=== PATIENT | male | born 1945 | race Caucasian/White ===

== ENCOUNTER 2017-02-20 14:47 | Emergency (ER) | payer MEDICARE, BC ==
[2017-02-20 15:18] VITALS: BP 137/73
== END 2017-02-20 15:45 | disposition left against medical advice (07) ==
LOC: UCEAST 14:47
DX: R06.00 Dyspnea, unspecified (principal); Z53.21 Procedure and treatment not carried out due to patient leaving prior to being seen by health care provider

== ENCOUNTER 2017-06-13 06:07 | Observation (INO) | payer MEDICARE, BC ==
[~2017-06-13 06:07] MED LIST: Buffered Lidocaine 0.9% SYRIN* 5 ML/SYR SYRINGE INTRADERM ONE; Famotidine IV* 10 MG/ML 2 ML (20 mg) IV ONE; Levalbuterol 0.63MG/3ML NEB* UNIT OF USE INH ONE; Metoclopramide TAB* 10 MG PO ONE
[2017-06-13] MEDS ORDERED: Famotidine IV* 10 MG/ML 2 ML (20 mg) ONE (06:38)
[2017-06-13] MEDS ORDERED: Metoclopramide TAB* 10 MG ONE (06:38)
[2017-06-13] MEDS ORDERED: ceFAZolin 2 GM PREMIX (*) 2 GM/50 ML BAG IVPB ONE (06:39)
[2017-06-13] MEDS ORDERED: Levalbuterol 1.25MG/0.5ML NEB ONE (06:39)
[2017-06-13] MEDS ORDERED: Buffered Lidocaine 0.9% SYRIN* 5 ML/SYR SYRINGE ONE (06:39)
[2017-06-13] MEDS ORDERED: Bacitracin IV* 50,000 UNITS INJ ONE (07:27)
[2017-06-13] MEDS ORDERED: Thrombin 5,000 UNITS* 1 APPLIC KIT - topical use - TOPICAL ONE (07:27)
[2017-06-13] MEDS ORDERED: Lidocaine 1% MPF wEPI 200,000* 30 ML SDV ONE (07:27)
[2017-06-13] MEDS ORDERED: Lidocaine 2% PF * 5 ML VIAL ONE (07:31)
[2017-06-13] MEDS ORDERED: Phenylephrine INJ* 10 MG/ML 1 ML VIAL (10 MG) ONE (07:31)
[2017-06-13] MEDS ORDERED: Dexamethasone IV* 4 MG/ML 1 ML (4 MG) ONE (07:31)
[2017-06-13] MEDS ORDERED: Cisatracurium* 2 MG/ML MDV 5 ML ONE (07:31)
[2017-06-13] MEDS ORDERED: fentaNYL* 50 MCG/ML 2 ML VIAL (100 MCG VIAL) ONE ×2 (07:31→10:08)
[2017-06-13] MEDS ORDERED: Propofol* 10 MG/ML 20 ML BTL IV PUSH ONE (07:31)
[2017-06-13] MEDS ORDERED: Ondansetron INJ* 2 MG/ML VIAL ONE (07:31)
[2017-06-13] MEDS ORDERED: KETAMINE HCL* 50 MG/ML 10 ML VIAL ONE (07:32)
[2017-06-13] MEDS ORDERED: Midazolam* 1 MG/ML 5 ML VIAL (5 MG) ONE (07:32)
[2017-06-13] MEDS ORDERED: Artificial Tear OPHTH.OINT* 3.5 GM ONE (07:36)
[2017-06-13] MEDS ORDERED: Ondansetron INJ* 2 MG/ML VIAL IV PRN ×2 (09:29→10:03)
[2017-06-13] MEDS ORDERED: Acetaminophen TAB* 325 MG PO PRN (09:29)
[2017-06-13] MEDS ORDERED: Albuterol HFA INHALER* 8 gm MDI INH PRN (09:34)
[2017-06-13] MEDS ORDERED: Levalbuterol 0.63MG/3ML NEB* UNIT OF USE INH PRN (10:03)
[2017-06-13] MEDS: fentaNYL* 50 MCG/ML 2 ML VIAL (100 MCG VIAL) IV PRN ×4 (10:09→10:56)
[2017-06-13] MEDS ORDERED: HYDROcodone/ACETAMIN 5-325 MG* 1 TAB ONE (10:57)
[2017-06-13] MEDS: HYDROcodone/ACETAMIN 5-325 MG* 1 TAB PO PRN ×4 (10:58→21:24)
[2017-06-13] MEDS ORDERED: Enalaprilat IV* 1.25 MG/ML 2 ML VIAL (2.5 MG) ONE (11:09)
[2017-06-13] MEDS: Nabumetone TAB* 500 MG PO SCH (21:25)
[2017-06-13] MEDS: Mometasone/Formoter 200/5 MDI INH SCH (21:40)
[2017-06-14] MEDS: HYDROcodone/ACETAMIN 5-325 MG* 1 TAB PO PRN ×2 (03:35→09:11)
--- NOTE | 2017-06-14 07:52 | PN ---
Progress Note - Progress Note Date of Service: 06/14/17 SOAP: Subjective: []POD # 1 Doing well Feels arms are moving better Minimal drainage from drain Objective: []CT shows satis construct Neuro intact Minimal drain output Assessment: []Satis post op course Plan: []D/C today D/C Instructions given
--- NOTE | 2017-06-14 07:59 | RAD ---
INDICATION: Status post cervical spine surgery COMPARISON: Presurgical MRI dated December 27, 2016 TECHNIQUE: Axial source images were acquired with coronal and sagittal reformatting. FINDINGS: Postsurgical changes include laminectomies at C3, C4 and C5. On the left there are 2 pedicle screws and 3 on the right with posterior fixation rods. There is a surgical drain immediately adjacent to the posterior elements and skin santosh overlying the posterior neck. There is air immediately posterior to the elements of the posterior spine, more so on the left than the right with expected infiltration of the subcutaneous tissues and muscles. There is no definite hyperdense material within the thecal sac. Degenerative changes of the cervical spine similar to the presurgical MRI include straightening of the normal cervical lordosis and loss of intervertebral disc height from C3 through C6. The most advanced degenerative changes are at C4/C5 where there is obliteration of the intervertebral disc space, sclerotic change of the articulating services and marginal osteophyte formation. On the coronal view there is uncovertebral hypertrophy at the mid-level cervical spine, most severe at the C4/C5 level. There is no prevertebral soft tissue swelling. The visualized lung apices exhibit centrilobular emphysematous changes. IMPRESSION: DEGENERATIVE AND POSTSURGICAL CHANGES DESCRIBED ABOVE.
[2017-06-14] MEDS: Mometasone/Formoter 200/5 MDI INH SCH (08:33)
[2017-06-14 08:34] VITALS: BP 129/59
[2017-06-14] MEDS ORDERED: Spiriva Inhaler DEVICE* 1 EACH DEVICE ONE (09:00)
[2017-06-14] MEDS ORDERED: Lisinopril TAB* 10 MG PO SCH (09:00)
[2017-06-14] MEDS ORDERED: Aspirin EC Low Dose* 81 MG TAB.EC PO SCH (09:00)
[2017-06-14] MEDS ORDERED: Tiotropium CAP.INH* CAP.INH/18 MCG (USE ORDER SET !) INH SCH (09:00)
[2017-06-14] MEDS ORDERED: Atorvastatin* 10 MG TAB PO SCH (09:00)
[2017-06-14] MEDS: Nabumetone TAB* 500 MG PO SCH (09:11)
--- NOTE | 2017-06-19 09:39 | OP ---
AMENDED REPORT TO CORRECT ACCOUNT NUMBER DATE OF OPERATION: 06/13/17 - ROOM #401 DATE OF : 45. PRIMARY SURGEON: Eusebio Bryant MD. HOISTING LABORER: "Vivek Warren MD." ANESTHESIOLOGIST: Kevin Marley MD ANESTHESIA: General. PRE-OP DIAGNOSIS: Cervical spondylosis with myelopathy. POST-OP DIAGNOSIS: Cervical spondylosis with myelopathy. OPERATIVE PROCEDURE: Decompressive cervical laminectomy, C3 to C6 with cervical fusion C3 to C6 with posterior instrumentation C3 to C6, harvesting of autograft for fusion. DESCRIPTION OF PROCEDURE: After satisfactory general anesthesia was obtained, the patient was placed on the operating room table in the prone position with the neck maintained in neutral utilizing the Singleton headrest. The posterior cervical region was then clipped, prepped and draped in a sterile manner for posterior cervical laminectomy and skin incision outlined from C2 to C6. This incision was then infiltrated with 1% Xylocaine with epinephrine, after which it was turned down sharply to the level of the cervical fascia. The fascia was divided along the spinous processes from C2 to C6 and the paraspinal musculature stripped away from these posterior elements using the periosteal elevator and monopolar cautery. The C2 spinous process was dissected free and served as a landmark for location of the proper levels. The initial step in the procedure was placement of lateral James screws which were placed into the C3 , C4, and C5 lateral masses on the right side and on the left side were placed into the C4 and C5 lateral mass. The lateral mass at C3 on the left side was noted to be somewhat deformed and arthritic. After screw placement decompression was carried out by harvesting the spinous processes of C3, C4 and C5 for use as autograft later in the procedure. The posterior elements of C3, C4, and C5 were removed with a combination of the Midas Wong drill and Kerrison rongeurs. Additional bone was saved for autograft when using the Kerrison. The decompression was carried out until all the posterior elements of the C3, C4 , and C5 had been removed as well as a small portion of superior aspect of C6. After assuring a satisfactory decompression, the bony edges about the screws were decorticated and a bone log was placed that had been made from autograft and allograft mixed with bony matrix. This was laid in the lateral gutter bilaterally. A drain was placed in the epidural space and tunneled out toward the left side. The fascia was then reapproximated with 0 Vicryl sutures, subcutaneous tissues closed with 3-0 Vicryl suture and the skin closed with skin clips. The estimated blood loss was less then 50 mL and final sponge, pad , and needle counts were correct. The patient was taken to the recovery room extubated and in stable condition. [id number]/[facility] [place] #: [id number] MTDD
--- NOTE | 2017-06-23 01:28 | DS ---
DISCHARGE SUMMARY: DATE OF ADMISSION: 06/13/17 DATE OF DISCHARGE: 06/14/17 PROVIDER: Dr. Bryant * (DICTATED BY DYLAN GILMORE) DISCHARGE DIAGNOSES: 1. Cervical spondylosis with myelopathy, C3-4, C4-5. 2. Chronic obstructive pulmonary disease. SPECIAL PROCEDURES: Posterior cervical decompression and fusion, C3-4 and C4-5. HOSPITAL COURSE: This 71-year-old male was seen in office with signs and symptoms of cervical myelopathy consistent with MRI findings of cervical spondylosis and cord compression at C3-4 and C4-5. He failed to improve with several months of conservative treatments and surgical intervention was discussed with the patient. He decided to proceed with elective surgery and was admitted at this time. On the day of admission, he was taken to surgery, where under general anesthesia, a posterior cervical decompression and fusion, C3-4 and C4-5, operation was carried out. Postoperatively, he was feeling well. Upper extremity symptoms were improving. He was eating and drinking without difficulty. He was ambulating independently. On the first postoperative day, the Mjeia wound drain was discontinued and the patient was discharged home to the care of the family. DISCHARGE MEDICATIONS: [place]iful 5/325 mg 1-2 tabs by mouth every 4 hours as needed for pain. FOLLOWUP: He will be seen in the office in approximately 10 to 14 days for followup and staple removal. DISCHARGE INSTRUCTIONS: Including wound care and activity level were discussed with the patient and information was provided. DYLAN GILMORE [id number]/[facility] #: [id number] MTDAnne
== END 2017-06-14 10:50 | disposition home or self-care (01) ==
LOC: OR 06:07 → SSU 09:29
PROVIDERS: ADMIT Neurological Surgery; ATTEND Neurological Surgery
DX: M47.12 Other spondylosis with myelopathy, cervical region (principal); G95.9 Disease of spinal cord, unspecified; Z87.891 Personal history of nicotine dependence; M19.90 Unspecified osteoarthritis, unspecified site
CPT/HCPCS: 72125; 94640; 94760; 96374; 96376; A9270-GY; C1713; C1776; G0378; J0690; J1100; J2001; J2250; J2405; J2704; J3010

== ENCOUNTER 2017-07-26 09:53 | Inpatient (IN) | payer MEDICARE, BC ==
[2017-07-26] MEDS ORDERED: Albuterol/Ipratropium NEB.SOL* Albuterol 2.5 MG/Ipratropium 0.5 MG 3 ML INH ONE (11:23)
[2017-07-26 11:35] LABS: Hematocrit 42 % (42-52); Hemoglobin 14.4 g/dl (14.0-18.0); Mean Corpuscular HGB Conc 34 g/dl (31-36); Mean Corpuscular Hemoglobin 32 pg (27-31); Mean Corpuscular Volume 93 fL (80-94); Mean Platelet Volume 8 um3 (7.4-10.4); Red Blood Count 4.54 10^6/ul (4.0-5.4); Red Cell Distribution Width 13 % (10.5-15); White Blood Count 14.1 10^3/ul (3.5-10.8)
[2017-07-26 11:36] LABS: Comments Flag Yes
[2017-07-26 11:41] LABS: BUN/Creatinine Ratio 15.1 (8-20); Calcium 9.9 mg/dL (8.6-10.3); EGFR African American 88.3 (>60); EGFR Non-African American 68.7 (>60); Globulin 3.7 g/dL (2-4); Potassium 3.9 mmol/L (3.5-5.0); Total Bilirubin 0.5 mg/dL (0.2-1.0); Total Protein 7.7 g/dL (6.4-8.9)
[2017-07-26] MEDS ORDERED: Acetaminophen TAB* 325 MG PO ONE (11:53)
[2017-07-26 12:00] LABS: Urine Bacteria Absent (Absent); Urine Bilirubin Negative (Negative); Urine Glucose Negative (Negative); Urine Nitrite Negative (Negative)
[2017-07-26] MEDS ORDERED: methylPREDNISolone 125 MG* 2 ML VIAL IV ONE (12:01)
[2017-07-26] MEDS ORDERED: Oseltamivir CAP* 75 MG PO ONE (12:01)
--- NOTE | 2017-07-26 12:09 | RAD ---
Indication: Chronic obstructive pulmonary disease. 2 views of the chest including dual energy PA views demonstrate no mediastinal shift. Heart is of normal size and configuration. Lung montemayor demonstrate no pleural fluid, pneumonia or pneumothorax. When compared to previous exam of June 17, 2017 no significant change is noted. IMPRESSION: No active cardiopulmonary disease is identified.
[2017-07-26] MEDS ORDERED: Albuterol HFA INHALER* 8 gm MDI INH PRN (14:12)
[2017-07-26] MEDS ORDERED: Acetaminophen TAB* 325 MG PO PRN (14:39)
[2017-07-26] MEDS: Azithromycin IV(*) 500 MG in NS 0.9% 250 ML* 250 ML IVPB SCH (16:50)
[2017-07-26] MEDS: NS 0.9% 1000 ML* 1,000 ML IV SCH (16:50)
[2017-07-26] MEDS: Albuterol 2.5 MG/3 ML NEB.SOL* (0.083%) INH SCH (19:26)
[2017-07-26] MEDS: Mometasone/Formoter 200/5 MDI INH SCH (19:29)
--- NOTE | 2017-07-26 19:49 | HP ---
CC: Dr. Nestor Whittington * HISTORY AND PHYSICAL: DATE OF ADMISSION: 07/26/17 PRIMARY CARE PROVIDER: Dr. Nestor Whittington. ATTENDING PHYSICIAN: Dr. Kade Salinas * (dictated by Mela Burkett NP) CHIEF COMPLAINT: Shortness of breath. HISTORY OF PRESENT ILLNESS: Mr. Bradley is a 72-year-old male with a past medical history significant for cervical spondylosis status post posterior cervical decompression and fusion, COPD, rheumatoid arthritis, GERD, and a hiatal hernia, who presents to the emergency room with complaints of chills, shortness of breath, and generally not feeling well. Mr. Bradley states that he received his Remicade last Monday on 07/21/17, since then had not been feeling well. He started feeling better on Monday evening and then yesterday morning developed diarrhea, intermittent epigastric pain. He reported shortness of breath at all times. He denied any fevers, but again reported chills. He denied any chest pain. He reports a cough and nausea. He has had a poor appetite due to just not feeling well and nausea. He has had some general malaise. He denies any urinary symptoms, lightheadedness or dizziness. The patient states that at home he had tried albuterol and that did not help with his shortness of breath. Due to his continued symptoms, he presented to the emergency room for further evaluation. While in the emergency room, the patient had a chest x-ray showing no acute findings. He had labs significant for leukocytosis of 14.1 and influenza B positive. He had a chest x-ray showing no acute disease. He was given a dose of Tamiflu, DuoNeb, Solu-Medrol, Tylenol. The hospitalists were asked to evaluate the patient for admission. PAST MEDICAL HISTORY: 1. Cervical spondylosis. 2. Chronic obstructive pulmonary disease. 3. Nephrolithiasis. 4. Rheumatoid arthritis. 5. GERD. 6. Hiatal hernia. 7. Hypertension. PAST SURGICAL HISTORY: 1. Status post posterior cervical decompression and fusion from C3-4 and C4-5. 2. Status post right carpal tunnel release. 3. Status post bilateral cataract extractions. 4. Status post reattachment of his right pinky finger after a traumatic accident. HOME MEDICATIONS: Include: 1. Methotrexate 20 mg oral weekly. The patient has had this on hold since May. 2. Vitamin E 400 units oral every morning. 3. Relafen 500 mg oral twice daily. 4. Multivitamin 1 tablet oral daily. 5. Diclofenac 1% gel apply topical 3 times daily as needed for pain. 6. Spiriva 1 capsule inhalation daily. 7. Pravastatin 40 mg oral every morning. 8. Vitamin D 400 units oral daily. 9. Vitamin C 1000 mg oral every morning. 10. Remicade 100 mg IV every 56 days, last dose was on 07/21/17. 11. Folic acid 1 tablet oral daily. 12. Calcium 600 plus D 1 tablet oral daily. 13. Clobetasol propionate 0.05% topical daily as needed for rash. 14. Benazepril 20 mg oral daily. 15. Aspirin 81 mg oral daily. 16. Advair Diskus 250/500 one puff inhalation twice daily. 17. Albuterol HFA 2 puffs inhalation every 4 hours as needed for shortness of breath. 18. Acetaminophen 325 mg oral twice daily. ALLERGIES: WELLBUTRIN, SULFA. FAMILY HISTORY: The patient's mother had a history of coronary artery disease. He denies any family history of cancer or diabetes mellitus. SOCIAL HISTORY: The patient is a former smoker quitting approximately 12 years ago, prior to that had a 40 year approximately 1 pack a day smoking history. He denies alcohol or recreational drug use. The patient's , Rayne Bradley will be his surrogate decision maker in the event he is unable to make decisions for himself. REVIEW OF SYSTEMS: I performed a 14-point review of systems. All the pertinent positives and negatives are mentioned in the history of present illness. The remaining of the other systems are negative. PHYSICAL EXAMINATION GENERAL APPEARANCE: The patient is alert, pleasant, appears to be in no acute distress. VITAL SIGNS: Temperature 100.0, heart rate 88, respiratory rate 17, O2 sat 90% on room air, blood pressure 142/72. HEENT: Normocephalic, atraumatic. Pupils are equal, round, and reactive to light. Extraocular movements are intact. RESPIRATORY: There is no accessory muscle use. The lungs are clear but diminished bilateral. CARDIOVASCULAR: Regular rate and rhythm. S1, S2 present. There are no murmurs , rubs, or gallops. ABDOMEN: Soft, nontender, and nondistended. There are bowel sounds present x4. EXTREMITIES: There is no lower extremity edema. DP and PT pulses are 2+ and symmetric. MUSCULOSKELETAL: There is no clubbing or cyanosis noted. The patient exhibits good strength in all extremities. NEUROLOGICAL: The patient is alert and oriented x4. Cranial nerves II through XII are grossly intact. PSYCHOLOGICAL: The patient is calm and cooperative. SKIN: There are no rashes or abnormalities seen. DIAGNOSTIC STUDIES/LABORATORY DATA: Sodium 133, potassium 3.9, chloride 100, CO2 24, BUN 16, creatinine 1.06, glucose 118. White blood cell count 14.1, hemoglobin 14.4, hematocrit 42, and platelet count 244. Influenza B positive. Urinalysis significant for trace ketones, leukocyte esterase 1+, rbc's 1+. Chest x-ray from today. Radiologist Impression: No active cardiopulmonary disease noted. IMPRESSION: Mr. Bradley is a 72-year-old male with past medical history significant for cervical spondylosis, chronic obstructive pulmonary disease, rheumatoid arthritis, gastroesophageal reflux disease, who presented to the emergency room with complaints of shortness of breath and was found to have pneumonia, influenza, and chronic obstructive pulmonary disease exacerbation. He will be admitted as an observation. ASSESSMENT/PLAN: 1. Chronic obstructive pulmonary disease exacerbation: The patient currently does not have any wheezing, but he has received a nebulizer in the emergency room. We will continue him on albuterol nebulizers q. 6 for a week. I will place him on prednisone, monotherapy of azithromycin. He will be continued on his home inhalers of Spiriva, Dulera. 2. Influenza B: The patient will be continued on Tamiflu for 5-day course. We will give him some gentle IV hydration as he has not been eating or drinking well due to feeling ill. 3. Hypertension: The patient will be continued on an MAXIMINO inhibitor. 4. Rheumatoid arthritis: The patient just received his dose of Remicade on 03/30. His methotrexate is on hold. 4. Fluids, electrolytes, and nutrition: The patient will be on a regular diet. 5. Code status: The patient is a full code. 6. DVT prophylaxis: The patient is at high risk, will be on subcu heparin. 7. Disposition: Inpatient. TIME SPENT: Time for this admission was approximately 60 minutes, greater than half of that was spent with the patient and his discussing medications, past medical history, the events leading up to his arrival today, and performing a physical examination. The case has been reviewed with the attending, Dr. Salinas, who agrees with the plan of care. Reviewed by VERNELL FRANKS-Magdiel 08/01/17 1904 [id number]/[facility] #: [id number] MTDAnne
[2017-07-26] MEDS: Nabumetone TAB* 500 MG PO SCH (21:27)
[2017-07-26] MEDS: Heparin VIAL(*) 5000 UNITS/ML VIAL (FIVE THOUSAND) SUBCUT SCH (21:28)
[2017-07-26] MEDS: Oseltamivir CAP* 75 MG PO SCH (21:28)
[2017-07-27] MEDS: Albuterol 2.5 MG/3 ML NEB.SOL* (0.083%) INH SCH (01:25)
[2017-07-27] MEDS: NS 0.9% 1000 ML* 1,000 ML IV SCH (05:14)
[2017-07-27] MEDS: Heparin VIAL(*) 5000 UNITS/ML VIAL (FIVE THOUSAND) SUBCUT SCH ×3 (05:17→21:23)
[2017-07-27 06:52] LABS: Hematocrit 37 % (42-52); Hemoglobin 12.5 g/dl (14.0-18.0); Mean Corpuscular HGB Conc 34 g/dl (31-36); Mean Corpuscular Hemoglobin 32 pg (27-31); Mean Corpuscular Volume 94 fL (80-94); Mean Platelet Volume 8 um3 (7.4-10.4); Red Blood Count 3.97 10^6/ul (4.0-5.4); Red Cell Distribution Width 13 % (10.5-15); White Blood Count 12.3 10^3/ul (3.5-10.8)
[2017-07-27 07:05] LABS: BUN/Creatinine Ratio 26.1 (8-20); Calcium 9.3 mg/dL (8.6-10.3); EGFR Non-African American 80.9 (>60); Potassium 4.1 mmol/L (3.5-5.0)
[2017-07-27] MEDS: Mometasone/Formoter 200/5 MDI INH SCH ×2 (07:55→19:27)
[2017-07-27] MEDS: Tiotropium CAP.INH* CAP.INH/18 MCG (USE ORDER SET !) INH SCH (07:55)
[2017-07-27] MEDS ORDERED: Spiriva Inhaler DEVICE* 1 EACH DEVICE ONE (09:00)
[2017-07-27] MEDS ORDERED: predniSONE TAB* 50 MG PO SCH (09:00)
[2017-07-27] MEDS: Cholecalciferol TAB* 400 UNIT PO SCH (09:05)
[2017-07-27] MEDS: Folic Acid TAB* 1 MG PO SCH (09:05)
[2017-07-27] MEDS: Oseltamivir CAP* 75 MG PO SCH ×2 (09:05→21:14)
[2017-07-27] MEDS: Lisinopril TAB* 10 MG PO SCH (09:05)
[2017-07-27] MEDS: Nabumetone TAB* 500 MG PO SCH ×2 (09:06→21:14)
[2017-07-27] MEDS: Multivitamins/Minerals TAB PO SCH (09:06)
[2017-07-27] MEDS: Aspirin EC Low Dose* 81 MG TAB.EC PO SCH (09:06)
[2017-07-27] MEDS: Vitamin E CAP* 400 UNIT PO SCH (09:06)
[2017-07-27] MEDS: Atorvastatin* 10 MG TAB PO SCH (09:06)
[2017-07-27] MEDS: Ascorbic Acid TAB* 500 MG PO SCH (09:06)
[2017-07-27] MEDS: Azithromycin IV(*) 500 MG in NS 0.9% 250 ML* 250 ML IVPB SCH (17:14)
--- NOTE | 2017-07-27 17:29 | PN ---
Subjective Interval History: Feels much better than yesterday. Cough improved. SOB only when lies flat. Hasn't walked in the lobato yet. Objective Active Medications: Acetaminophen (Tylenol Tab*) 650 mg PO Q4H PRN PRN Reason: FEVER/PAIN Albuterol (Ventolin Hfa Inhaler*) 2 puff INH Q4H PRN PRN Reason: SOB/WHEEZING Ascorbic Acid (Vitamin C Tab*) [facility] [place] Last Admin: 07/27/17 09:06 Dose: 1,000 mg Aspirin (Aspirin Ec Low Dose*) 81 mg PO DAILY [facility] Last Admin: 07/27/17 09:06 Dose: 81 mg Atorvastatin Calcium (Lipitor*) 10 [facility] [place] PRN Reason: Protocol Last Admin: 07/27/17 09:06 Dose: 10 mg Cholecalciferol (Vitamin D Tab*) 400 unit PO QAM [facility] Last Admin: 07/27/17 09:05 Dose: 400 unit Folic Acid (Folvite Tab*) 1 mg PO DAILY [facility] Last Admin: 07/27/17 09:05 Dose: 1 mg Heparin Sodium (Porcine) (Heparin Vial(*)) 5,000 units SUBCUT Q8HR [facility] Last Admin: 07/27/17 14:29 Dose: 5,000 units Azithromycin 500 mg/ Sodium (Chloride) 250 mls @ 250 mls/hr IVPB Q24H [facility] Last Admin: 07/27/17 17:14 Dose: 250 mls/hr Sodium Chloride (Ns 0.9% 1000 Ml*) 1,000 mls @ 100 mls/hr IV PER RATE [facility] Last Admin: 07/27/17 05:14 Dose: 100 mls/hr Lisinopril (Prinivil Tab*) [facility] [place] Last Admin: 07/27/17 09:05 Dose: 20 mg Mometasone Furoate/Formoterol Fumar (Dulera 200/5 Mdi*) 2 puff INH BID [facility] Last Admin: 07/27/17 07:55 Dose: 2 puff Multivitamins/Minerals (Theragran/Minerals Tab*) [facility] [place] Last Admin: 07/27/17 09:06 Dose: 1 tab Nabumetone (Relafen Tab*) 500 mg PO BID [facility] Last Admin: 07/27/17 09:06 Dose: 500 mg Oseltamivir Phosphate (Tamiflu Cap*) 75 mg PO BID [facility] Stop: 07/31/17 09:01 Last Admin: 07/27/17 09:05 Dose: 75 mg Prednisone (Deltasone Tab*) 50 mg PO DAILY [facility] Last Admin: 07/27/17 09:06 Dose: 50 mg Tiotropium [place] (Spiriva Cap.Inh*) 1 cap INH DAILY [facility] Last Admin: 07/27/17 07:55 Dose: 1 cap Vitamin E (Vitamin E Cap*) 400 unit PO QAM [facility] Last Admin: 07/27/17 09:06 Dose: 400 unit Oxygen Devices in Use Now: Nasal Cannula Appearance: [id number]. Respiratory: Symmetrical Chest Expansion and Respiratory Effort, Clear to Percussion, - - diminished BS BL Cardiovascular: NL Sounds; No Murmurs; No JVD, RRR, No Edema, - Extremities: No Edema, No Clubbing, Cyanosis, - Skin: No Rash or Ulcers, No Nodules or Sclerosis, - Neurological: Alert and Oriented x 3, NL Sensation Result Diagrams: 07/27/17 06:21 07/27/17 06:21 Assess/Plan/Problems-Billing Assessment: - Patient Problems (1) COPD exacerbation Current Visit: Yes Status: Acute Code(s): J44.1 - CHRONIC OBSTRUCTIVE PULMONARY DISEASE W (ACUTE) EXACERBATION SNOMED Code(s): 801781657992167 Comment: Continue azith, albuterol, tiotropium, Dulera, prednisone taper. (2) Influenza B Current Visit: Yes Status: Acute Code(s): J10.1 - FLU DUE TO OTH IDENT INFLUENZA VIRUS W OTH RESP MANIFEST SNOMED Code(s): 51738657 Comment: Continue oseltamivir. (3) Rheumatoid arthritis Current Visit: Yes Status: Acute Code(s): M06.9 - RHEUMATOID ARTHRITIS, UNSPECIFIED SNOMED Code(s): 09606478 Comment: Infliximab not due for about 6 wks. Skip 1 week MTX (skip 07/31). (4) HTN (hypertension) Current Visit: Yes Status: Acute Code(s): I10 - ESSENTIAL (PRIMARY) HYPERTENSION SNOMED Code(s): 48686968 Comment: Continue lisinopril.
[2017-07-28] MEDS: Heparin VIAL(*) 5000 UNITS/ML VIAL (FIVE THOUSAND) SUBCUT SCH (06:52)
[2017-07-28] MEDS: Mometasone/Formoter 200/5 MDI INH SCH (07:53)
[2017-07-28] MEDS: Tiotropium CAP.INH* CAP.INH/18 MCG (USE ORDER SET !) INH SCH (07:53)
[2017-07-28 08:03] VITALS: BP 150/72
[2017-07-28] MEDS: Atorvastatin* 10 MG TAB PO SCH (08:06)
[2017-07-28] MEDS: Vitamin E CAP* 400 UNIT PO SCH (08:06)
[2017-07-28] MEDS: Cholecalciferol TAB* 400 UNIT PO SCH (08:06)
[2017-07-28] MEDS: Ascorbic Acid TAB* 500 MG PO SCH (08:06)
[2017-07-28] MEDS: Aspirin EC Low Dose* 81 MG TAB.EC PO SCH (08:06)
[2017-07-28] MEDS: Oseltamivir CAP* 75 MG PO SCH (08:06)
[2017-07-28] MEDS: Multivitamins/Minerals TAB PO SCH (08:06)
[2017-07-28] MEDS: Nabumetone TAB* 500 MG PO SCH (08:06)
[2017-07-28] MEDS: Lisinopril TAB* 10 MG PO SCH (08:07)
[2017-07-28] MEDS: Folic Acid TAB* 1 MG PO SCH (08:07)
[2017-07-28] MEDS ORDERED: predniSONE TAB* 20 MG PO SCH (09:00)
--- NOTE | 2017-07-28 09:23 | PN ---
Progress Note - Progress Note Date of Service: 07/28/17 Note: Time spent on discharge 45 minutes.
[2017-07-28] MEDS ORDERED: Azithromycin TAB* 250 MG PO SCH (17:00)
--- NOTE | 2017-07-29 01:27 | DS ---
CC: Dr. Whittington DISCHARGE SUMMARY: DATE OF ADMISSION: DATE OF DISCHARGE: 07/28/17. HOSPITAL COURSE: This 72-year-old man presented with shortness of breath. I note he is taking infli ximab for his rheumatoid arthritis. He last took this on 07/21/17. He is supposed to be taking meth otrexate 20 mg every Monday, but has skipped this many times for various procedures and medical probl ems. Since his last infliximab on 07/21/17, he has not felt well. He developed diarrhea, epigastric pain, shortness of breath. Swab for influenza showed influenza B. Chest x-ray was unremarkable. He was felt to be having a A [employer] P MECH[employer]IC D exacerbation and influenza B. He was given intravenous azithromycin, glucocorticoids, bronchodilators and oseltamivir. He did well in the hospital and improved quite a bit. On the day of discharge, he was able to walk in the halls quite easily. His O2 saturations were over 90% on room air, even with exertion. His cough had impr darrin significantly and he felt much better. I note that in the hospital, his temperature was 100.0 w hen he first came to the hospital, but was below 99 after that. Blood pressure 150/72 on the day of discharge. FINAL DIAGNOSES: 1. Influenza B. 2. Chronic obstructive pulmonary disease exacerbation. 3. Rheumatoid arthritis. 4. Hypertension. DISCHARGE MEDICATIONS: 1. Azithromycin 250 mg daily at 5 p.m. for 3 more days. 2. Oseltamivir 75 mg b.i.d. for 6 more doses. 3. Prednisone 10 mg daily, taper from 20 over 3 days. 4. Albuterol inhaler 2 puffs every 4 hours p.r.n. 5. Nabumetone 500 mg b.i.d. 6. Fluticasone salmeterol 250/50 one puff b.i.d. 7. Methotrexate 20 mg, will be skipped on 07/21/17, but restarted on 08/07/17. 8. Ascorbic acid 1000 mg daily. 9. Multivitamin with mineral daily. 10. Diclofenac 1% gel t.i.d. p.r.n. 11. Aspirin 81 mg daily. 12. Vitamin D 400 units daily. 13. Benazepril 20 mg every morning. 14. Tiotropium 1 capsule daily. 15. Pravastatin 40 mg every morning. 16. Vitamin E 400 units daily. 17. Infliximab 100 mg IV every 56 days. 18. Folic acid 1 mg daily. 19. Calcium with vitamin D one daily. 20. Clobetasol 0.05% topical p.r.n. 21. Acetaminophen 325 mg b.i.d. [id number]/[facility] #: [id number]
== END 2017-07-28 11:16 | disposition home or self-care (01) | DRG 194 ==
LOC: ED 09:53 → MED 12:03
PROVIDERS: ADMIT Internal Medicine; ATTEND Internal Medicine
DX: J10.1 Influenza due to other identified influenza virus with other respiratory manifestations (principal); J44.1 Chronic obstructive pulmonary disease with (acute) exacerbation; M06.9 Rheumatoid arthritis, unspecified; I10 Essential (primary) hypertension; K21.9 Gastro-esophageal reflux disease without esophagitis; K44.9 Diaphragmatic hernia without obstruction or gangrene; Z87.442 Personal history of urinary calculi; Z98.42 Cataract extraction status, left eye; Z98.41 Cataract extraction status, right eye; Z88.8 Allergy status to other drugs, medicaments and biological substances; Z88.2 Allergy status to sulfonamides; Z82.49 Family history of ischemic heart disease and other diseases of the circulatory system; Z98.1 Arthrodesis status; Z87.891 Personal history of nicotine dependence; Z79.82 Long term (current) use of aspirin
CPT/HCPCS: 36415; 71020; 80048; 80053; 81003; 81015; 85025; 85027; 87086; 87502; 94640; 94760; A9270-GY; J0456; J1644; J2930; J7512

== ENCOUNTER 2018-09-05 08:52 | Emergency (ER) | payer MEDICARE, BC ==
--- OUTSIDE RECORDS SUMMARY | 2018-09-05 09:16 | XMS REPORT | Continuity of Care Document ---
:1945 External Reference #:[id number] Author Name Krista Watts Care Team Providers Name Role Phone Eusebio Avina M.D. Primary Care Physician Unavailable Payers Type Date Identification Numbers Payment Provider Subscriber Policy Number: [id number] Medicare Fish Guido Kirk PayID: [id number] [address] [place] [address] Effective: 2010 Policy Number: [id number] Medicare Fish Bradley Expires: 2018 PayID: [id number] [address] [place] [address] Effective: 2012 Policy Number: [id number] [facility] Fish Guido Kirk PayID: [id number] [address] [address] AL[place] Marinelli [address] Advance Directives Description No Information Available Problems Date Description Provider Status Onset: 05/13/2015 Incomplete rotator cuff tear or rupture Julien Peralta M.D. Active of right shoulder, not specified as traumatic Onset: 12/21/2016 Brachial neuritis DYLAN Oleary Active Onset: 01/16/2017 Cervical spondylosis with myelopathy Eusebio Bryant M.D. Active Onset: 06/19/2017 Convalescence after surgery Eusebio Bryant M.D. Active Onset: 10/04/2017 Disorder of shoulder Julien Peralta M.D. Active Onset: 10/18/2017 Full thickness rotator cuff tear Julien Peralta M.D. Active Onset: 12/20/2017 Injury of shoulder region Julien Peralta M.D. Active Onset: 01/17/2018 Encounter for other orthopedic Julien Peralta M.D. Active aftercare Family History Date Family Member(s) Problem(s) Comments General Heart Disease Social History Type Date Description Comments Sex Unknown Lives With ETOH Use Drinks 6 Alcoholic Beverages Per Week Tobacco Use Start: Unknown End: Patient is a former smoker Quit 2004 Unknown Smoking Status Reviewed: 09/04/18 Patient is a former smoker Quit 2004 Exercise Type/Frequency Exercises regularly Allergies, Adverse Reactions, Alerts Date Description Reaction Status Severity Comments 05/07/2014 Sulfa Antibiotics Active Medications Medication Date Status Form Strength Qnty SIG Indications Ordering Provider Nitro-bid 09/04/ Active Ointment 2% 30unit apply Danny 2018 s small Sarah, amount M.D. to webs of digits as needed for attack of raynaud' s Percocet 11/06/ Active Tablets 5-325mg 42tabs 1 tab 2017 every Fabian, 4-6 M.D. hours as needed for pain. max of 6 tabs per day Aspercreme 09/27/ Active Patches 4% 30unit apply Danny Lidocaine Max 2017 s daily as Sarah, Strength needed M.D. for pain in the feet Nabumetone 09/27/ Active Tablets 500mg 180tab take one 2017 s capsule/ Sarah, tablet M.D. by mouth twice daily as needed for pain, please stop other nsaids Acetaminophen / Active Unknown 0000 Calcium 600 / Active Unknown 0000 Advair Diskus / Active Aerosol 250-50mcg/ 1 puff Unknown 0000 Dose by mouth twice a day Spiriva / Active Capsules 18mcg Loving, Handihaler 0000 MD Nestor Pravastatin / Active Tablets 40mg McClintic, Sodium 0000 Gordon Berg MD Remicade / Active Solution 100mg every 8 Unknown 0000 Rec weeks Benazepril HCL / Active Tablets 10mg 1 by Unknown 0000 mouth every day Ventolin HFA / Active Aerosol 108(90Base 2 puffs Unknown 0000 ) mcg/Act by mouth four times a day as needed Voltaren / Active Gel 1% Unknown 0000 Nitro-bid 10/19/ Hx Ointment 2% 30unit apply Danny Dumont - s small Sarah, 11/06/ amount M.D. 2017 to webs of digits as needed for attack of raynaud' s Flexeril 12/21/ Hx Tablets 10mg 30tabs one Julien 2017 - tablet Fabian, 07/17/ every 8 M.D. 2017 hours as needed for muscle spasm Methotrexate / Hx 2.5mg 6QWK Unknown - 2017 Nabumetone / Hx Unknown - 2017 Folic Acid / Hx Unknown - 2017 Medications Administered in Office Medication Date Status Form Strength Qnty SIG Indications Ordering Provider Depomedrol Administered Injection Codie 40MG 017 Bitting, RPA-C Immunizations CPT Code Status Date Vaccine Reaction Lot # [id number] Given 05/02/2018 Influenza Virus Vaccine, no immediate reaction [id number] Quadrivalent, Split, noted Preservative Free [id number] Given 10/20/2017 Pneumococcal Conjugate Vaccine 13 Valent For Intramuscular Use Vital Signs Date Vital Result Comment 09/04/2018 11:49am Height 68.5 inches 5'8.50" Weight 133.00 lb Heart Rate 64 /min BP Systolic 120 mmHg BP Diastolic 72 mmHg BMI (Body Mass Index) 19.9 kg/m2 09/04/2018 8:40am Height 68.5 inches 5'8.50" Weight 132.00 lb Heart Rate 63 /min BP Systolic 118 mmHg BP Diastolic 72 mmHg Pain Level 5 O2 % BldC Oximetry 97 % BMI (Body Mass Index) 19.8 kg/m2 07/16/2018 1:45pm Height 68.5 inches 5'8.50" Weight 132.00 lb BP Systolic Sitting 118 mmHg BP Diastolic Sitting 70 mmHg Pain Level 6 BMI (Body Mass Index) 19.8 kg/m2 06/27/2018 10:50am Height 68.5 inches 5'8.50" Weight 132.00 lb BP Systolic Sitting 160 mmHg BP Diastolic Sitting 88 mmHg Pain Level 8 BMI (Body Mass Index) 19.8 kg/m2 05/02/2018 9:33am Height 68.5 inches 5'8.50" Weight 132.00 lb Heart Rate 52 /min BP Systolic Sitting 171 mmHg BP Diastolic Sitting 70 mmHg Respiratory Rate 14 /min Pain Level 3 BMI (Body Mass Index) 19.8 kg/m2 04/04/2018 9:34am Height 68.5 inches 5'8.50" Weight 135.00 lb Heart Rate 51 /min BP Systolic 140 mmHg BP Diastolic 80 mmHg Body Temperature 97.2 F Pain Level 0 BMI (Body Mass Index) 20.2 kg/m2 01/30/2018 11:32am Height 68.5 inches 5'8.50" Weight 133.12 lb Heart Rate 55 /min BP Systolic Sitting 126 mmHg BP Diastolic Sitting 68 mmHg Pain Level 2 O2 % BldC Oximetry 93 % BMI (Body Mass Index) 19.9 kg/m2 01/17/2018 11:18am Height 68.5 inches 5'8.50" Weight 136.00 lb BP Systolic 128 mmHg BP Diastolic 64 mmHg Respiratory Rate 20 /min Pain Level 3 BMI (Body Mass Index) 20.4 kg/m2 12/20/2017 11:30am Height 68.5 inches 5'8.50" Weight 136.00 lb Heart Rate 76 /min BP Systolic 162 mmHg BP Diastolic 80 mmHg Respiratory Rate 14 /min Pain Level 4 BMI (Body Mass Index) 20.4 kg/m2 12/20/2017 11:29am Height 68.5 inches 5'8.50" Weight 136.00 lb Heart Rate 76 /min BP Systolic 162 mmHg BP Diastolic 80 mmHg Respiratory Rate 14 /min Pain Level 4 BMI (Body Mass Index) 20.4 kg/m2 11/29/2017 9:25am Height 68.5 inches 5'8.50" Weight 136.00 lb Heart Rate 54 /min BP Systolic 167 mmHg BP Diastolic 73 mmHg Body Temperature 94.9 F BMI (Body Mass Index) 20.4 kg/m2 10/19/2017 2:15pm Height 68.5 inches 5'8.50" Heart Rate 60 /min BP Systolic Sitting 144 mmHg BP Diastolic Sitting 80 mmHg Respiratory Rate 14 /min Pain Level 4 10/18/2017 1:29pm Height 68.5 inches 5'8.50" BP Systolic 118 mmHg BP Diastolic 60 mmHg Respiratory Rate 16 /min Body Temperature 97.3 F Pain Level 2 10/04/2017 9:47am Height 68.5 inches 5'8.50" Weight 136.00 lb BP Systolic 128 mmHg BP Diastolic 66 mmHg Respiratory Rate 18 /min Pain Level 8 BMI (Body Mass Index) 20.4 kg/m2 09/27/2017 2:00pm Height 68.5 inches 5'8.50" Weight 136.00 lb Heart Rate 85 /min BP Systolic Sitting 138 mmHg BP Diastolic Sitting 74 mmHg Respiratory Rate 14 /min Pain Level 5 BMI (Body Mass Index) 20.4 kg/m2 07/17/2017 9:05am Height 68.5 inches 5'8.50" Weight 137.00 lb Heart Rate 60 /min BP Systolic Sitting 128 mmHg BP Diastolic Sitting 76 mmHg Pain Level 2 BMI (Body Mass Index) 20.5 kg/m2 06/26/2017 9:21am Height 68.5 inches 5'8.50" Weight 137.00 lb Heart Rate 52 /min BP Systolic Sitting 128 mmHg BP Diastolic Sitting 80 mmHg Pain Level 4 BMI (Body Mass Index) 20.5 kg/m2 06/19/2017 11:37am Height 68.5 inches 5'8.50" Weight 137.00 lb Heart Rate 59 /min BP Systolic Sitting 118 mmHg BP Diastolic Sitting 80 mmHg BMI (Body Mass Index) 20.5 kg/m2 05/08/2017 8:58am Height 68.5 inches 5'8.50" Weight 137.00 lb Heart Rate 82 /min BP Systolic Sitting 148 mmHg BP Diastolic Sitting 90 mmHg Pain Level 4 BMI (Body Mass Index) 20.5 kg/m2 01/16/2017 2:25pm Height 68.5 inches 5'8.50" Weight 137.00 lb Heart Rate 96 /min BP Systolic Sitting 150 mmHg BP Diastolic Sitting 88 mmHg Pain Level 1 neck, arms, hands BMI (Body Mass Index) 20.5 kg/m2 01/04/2017 9:06am Height 68.5 inches 5'8.50" Weight 136.00 lb Heart Rate 65 /min BP Systolic 155 mmHg BP Diastolic 76 mmHg Body Temperature 96.5 F BMI (Body Mass Index) 20.4 kg/m2 12/21/2016 10:35am Height 68.5 inches 5'8.50" Weight 136.00 lb Heart Rate 60 /min BP Systolic 184 mmHg BP Diastolic 76 mmHg Body Temperature 97.1 F BMI (Body Mass Index) 20.4 kg/m2 09/15/2016 10:25am Height 68 inches 5'8" Weight 140.00 lb Heart Rate 66 /min BP Systolic 153 mmHg BP Diastolic 82 mmHg Pain Level 9 BMI (Body Mass Index) 21.3 kg/m2 09/03/2015 1:49pm Height 68 inches 5'8" Weight 140.00 lb Pain Level 4 BMI (Body Mass Index) 21.3 kg/m2 05/13/2015 1:22pm Height 68 inches 5'8" Weight 140.00 lb Pain Level 8 above shoulder movement BMI (Body Mass Index) 21.3 kg/m2 05/27/2014 1:52pm Height 68 inches 5'8" Heart Rate 62 /min BP Systolic 148 mmHg BP Diastolic 90 mmHg 05/07/2014 2:40pm Height 68 inches 5'8" Weight 141.00 lb Heart Rate 67 /min BP Systolic 143 mmHg BP Diastolic 85 mmHg BMI (Body Mass Index) 21.4 kg/m2 Results Test Date Facility Test Result H/L Range Note Laboratory test 08/30/2018 [facility] Lyme Disease Negative Negative [address] [place] [address] [phone] TSH (Thyroid Stim Horm) 1.20 mcIU/mL N 0.34-5.60 Cortisol 6.46 g/dL 2 Monica-1 Antibody <0.2 U 3 Ssa/SSB Abs Igg 08/30/2018 [facility] SS-A/Ro Antibody <0.2 U [address] [place] [address] [phone] SS-B/La Antibody <0.2 U 5 Laboratory 08/30/2018 [facility] Cyclic >250.0 U Abnormal 6 test finding [address] [place] [address] Igg [phone] Nuclear AB 08/30/2018 [facility] Nuclear Ab (Addie) Positive Abnormal 7 (Addie) By [facility] [address] by Ifa, IgG 1:640 [place] [address] [phone] Addie Titer: 1:640 Addie Pattern: Homogeneous 8 Laboratory test 08/30/2018 [facility] Erythrocyte Sed 33 mm/Hr N 0-[address] [place] [address] [phone] Creatine Kinase(CK) 61 U/L N 10-223 C Reactive Protein 1.02 mg/L N <8.01 Laboratory test 08/02/2018 [facility] Erythrocyte Sed 18 mm/Hr N 0-[address] [place] [address] [phone] CBC Auto Diff 08/02/2018 [facility] White Blood 5.4 N 3.5- 10.[address] Count 10^3/[place] [address] [phone] Red Blood Count 4.47 10^6/uL N 4.00-5.40 Hemoglobin 14.2 g/dL N 14.0-18.0 Hematocrit 43 % N 42-52 Mean Corpuscular Volume 95 fL High 80-94 Mean Corpuscular Hemoglobin 32 pg High 27-31 Mean Corpuscular HGB Conc 34 g/dL N 31-36 Red Cell Distribution Width 14 % N 10.5-15 Platelet Count 248 10^3/uL N 150-450 Mean Platelet Volume 7.5 fL N 7.4-10.4 Abs Neutrophils 3.1 10^3/uL N 1.5-7.7 Abs Lymphocytes 1.4 10^3/uL N 1.0-4.8 Abs Monocytes 0.7 10^3/uL N 0-0.8 Abs Eosinophils 0.1 10^3/uL N 0-0.6 Abs Basophils 0.1 10^3/uL N 0-0.2 Abs Nucleated RBC 0 10^3/uL Granulocyte % 58.0 % Lymphocyte % 26.6 % Monocyte % 12.3 % Eosinophil % 2.0 % Basophil % 1.1 % Nucleated Red Blood Cells % 0.1 Laboratory test 08/02/2018 [facility] C Reactive 1.21 mg/L N < 8.[address] [place] [address] [phone] Comp Metabolic 08/02/2018 [facility] Sodium 140 mmol/L N 135- [address] [place] [address] [phone] Potassium 4.3 mmol/L N 3.5-5.0 Chloride 106 mmol/L N 101-111 Co2 Carbon Dioxide 30 mmol/L N 22-32 Anion Gap 4 mmol/L N 2-11 Glucose 90 mg/dL N 70-100 Blood Urea Nitrogen 24 mg/dL N 6-24 Creatinine 1.18 mg/dL High 0.67-1.17 BUN/Creatinine Ratio 20.3 High 8-20 Calcium 10.1 mg/dL N 8.6-10.3 Total Protein 7.2 g/dL N 6.4-8.9 Albumin 4.1 g/dL N 3.2-5.2 Globulin 3.1 g/dL N 2-4 Albumin/Globulin Ratio 1.3 N 1-3 Total Bilirubin 0.40 mg/dL N 0.2-1.0 Alkaline Phosphatase 64 U/L N 34-104 Alt 16 U/L N 7-52 Ast 22 U/L N 13-39 Egfr Non- 60.5 >60 Egfr 73.2 >60 9 Comp Metabolic Panel 06/07/2018 [facility] Sodium 138 mmol/L N 135-[address] [place] [address] [phone] Potassium 4.3 mmol/L N 3.5-5.0 Chloride 105 mmol/L N 101-111 Co2 Carbon Dioxide 28 mmol/L N 22-32 Anion Gap 5 mmol/L N 2-11 Glucose 90 mg/dL N 70-100 Blood Urea Nitrogen 21 mg/dL N 6-24 Creatinine 0.99 mg/dL N 0.67-1.17 BUN/Creatinine Ratio 21.2 High 8-20 Calcium 10.6 mg/dL High 8.6-10.3 Total Protein 7.5 g/dL N 6.4-8.9 Albumin 4.1 g/dL N 3.2-5.2 Globulin 3.4 g/dL N 2-4 Albumin/Globulin Ratio 1.2 N 1-3 Total Bilirubin 0.40 mg/dL N 0.2-1.0 Alkaline Phosphatase 65 U/L N 34-104 Alt 19 U/L N 7-52 Ast 22 U/L N 13-39 Egfr Non- 74.3 >60 Egfr 89.9 >60 10 Laboratory test 06/07/2018 [facility] C Reactive < 1.00 N < 8.[address] Protein mg/[place] [address] [phone] CBC Auto Diff 06/07/2018 [facility] White Blood 6.1 N 3.5- 10.[address] Count 10^3/[place] [address] [phone] Red Blood Count 4.45 10^6/uL N 4.00-5.40 Hemoglobin 14.0 g/dL N 14.0-18.0 Hematocrit 42 % N 42-52 Mean Corpuscular Volume 94 fL N 80-94 Mean Corpuscular Hemoglobin 32 pg High 27-31 Mean Corpuscular HGB Conc 34 g/dL N 31-36 Red Cell Distribution Width 13 % N 10.5-15 Platelet Count 222 10^3/uL N 150-450 Mean Platelet Volume 8.9 um3 N 7.4-10.4 Abs Neutrophils 3.6 10^3/uL N 1.5-7.7 Abs Lymphocytes 1.5 10^3/uL N 1.0-4.8 Abs Monocytes 0.7 10^3/uL N 0-0.8 Abs Eosinophils 0.2 10^3/uL N 0-0.6 Abs Basophils 0 10^3/uL N 0-0.2 Abs Nucleated RBC 0 10^3/uL Granulocyte % 59.9 % N 38-83 Lymphocyte % 24.4 % Low 25-47 Monocyte % 11.8 % High 0-7 Eosinophil % 3.2 % N 0-6 Basophil % 0.7 % N 0-2 Nucleated Red Blood Cells % 0.1 Laboratory test 06/07/2018 [facility] Erythrocyte Sed 23 mm/Hr N 0-[address] Rate [place], [place] [id number] [phone] Laboratory test 05/02/2018 [facility] Standing Orders Esr Sedimentation <pending> finding Rate CRP C-Reactive Protein <pending> CBC W/Auto Diff 05/02/2018 [facility] Standing Orders White Blood Count <pending> RBC Red Blood Count <pending> Hemoglobin <pending> Hematocrit <pending> MCV (Corpuscular Volume) <pending> MCH (Corpuscular Hemoglobin) <pending> MCHC (Corpuscular Hemog Conc) <pending> RDW <pending> Platelet Count <pending> MPV <pending> Neutrophils <pending> Bands <pending> Lymphocytes <pending> Monocytes <pending> Eosinophils <pending> Basophils <pending> Absolute Basophil <pending> Absolute Eosinophil <pending> Absolute Lymphocyte <pending> Absolute Monocytes <pending> Absolute Neutrophils <pending> CMP Panel 05/02/2018 [facility] Standing Orders Albumin <pending> Alt - SGPT <pending> Calcium <pending> Carbon Dioxide <pending> Chloride <pending> Creatinine <pending> Glucose Serum <pending> Alkaline Phosphatase <pending> Potassium <pending> Total Protein <pending> Sodium <pending> Ast - Sgot <pending> BUN - Urea Nitrogen <pending> Comp Metabolic Panel 04/12/2018 [facility] Sodium 137 mmol/L N 135-[address] [place] [address] [phone] Potassium 4.5 mmol/L N 3.5-5.0 Chloride 104 mmol/L N 101-111 Co2 Carbon Dioxide 27 mmol/L N 22-32 Anion Gap 6 mmol/L N 2-11 Glucose 85 mg/dL N 70-100 Blood Urea Nitrogen 21 mg/dL N 6-24 Creatinine 1.14 mg/dL N 0.67-1.17 BUN/Creatinine Ratio 18.4 N 8-20 Calcium 9.6 mg/dL N 8.6-10.3 Total Protein 6.5 g/dL N 6.4-8.9 Albumin 3.7 g/dL N 3.2-5.2 Globulin 2.8 g/dL N 2-4 Albumin/Globulin Ratio 1.3 N 1-3 Total Bilirubin 0.40 mg/dL N 0.2-1.0 Alkaline Phosphatase 59 U/L N 34-104 Alt 21 U/L N 7-52 Ast 19 U/L N 13-39 Egfr Non- 63.1 >60 Egfr 76.4 >60 11 Laboratory test 04/12/2018 [facility] C Reactive 1.68 mg/L N < 8.[address] [place] [address] [phone] CBC Auto Diff 04/12/2018 [facility] White Blood 8.9 N 3.5- 10.[address] Count 10^3/[place] [address] [phone] Red Blood Count 4.36 10^6/uL N 4.00-5.40 Hemoglobin 13.8 g/dL Low 14.0-18.0 Hematocrit 41 % Low 42-52 Mean Corpuscular Volume 94 fL N 80-94 Mean Corpuscular Hemoglobin 32 pg High 27-31 Mean Corpuscular HGB Conc 34 g/dL N 31-36 Red Cell Distribution Width 13 % N 10.5-15 Platelet Count 213 10^3/uL N 150-450 Mean Platelet Volume 8.3 um3 N 7.4-10.4 Abs Neutrophils 6.0 10^3/uL N 1.5-7.7 Abs Lymphocytes 1.7 10^3/uL N 1.0-4.8 Abs Monocytes 1.0 10^3/uL High 0-0.8 Abs Eosinophils 0.1 10^3/uL N 0-0.6 Abs Basophils 0.1 10^3/uL N 0-0.2 Abs Nucleated RBC 0 10^3/uL Granulocyte % 67.5 % N 38-83 Lymphocyte % 18.9 % Low 25-47 Monocyte % 11.0 % High 0-7 Eosinophil % 1.4 % N 0-6 Basophil % 1.2 % N 0-2 Nucleated Red Blood Cells % 0.1 Laboratory test 04/12/2018 [facility] Erythrocyte Sed 23 mm/Hr N 0-[address] [place] [address] [phone] Laboratory test 01/31/2018 [facility] Erythrocyte Sed 34 mm/Hr N 0-[address] [place] [address] [phone] C Reactive Protein 5.19 mg/L N <8.01 CBC W/Auto 01/31/2018 [facility] White Blood 6.4 10^3/uL N 3.5 -10.[address] [place] [address] [phone] Red Blood Count 4.79 10^6/uL N 4.00-5.40 Hemoglobin 15.2 g/dL N 14.0-18.0 Hematocrit 45 % N 42-52 Mean Corpuscular Volume 93 fL N 80-94 Mean Corpuscular Hemoglobin 32 pg High 27-31 Mean Corpuscular HGB Conc 34 g/dL N 31-36 Red Cell Distribution Width 14 % N 10.5-15 Platelet Count 275 10^3/uL N 150-450 Mean Platelet Volume 7.1 um3 Low 7.4-10.4 Abs Neutrophils 3.7 10^3/uL N 1.5-7.7 Abs Lymphocytes 1.2 10^3/uL N 1.0-4.8 Abs Monocytes 1.0 10^3/uL High 0-0.8 Abs Eosinophils 0.4 10^3/uL N 0-0.6 Abs Basophils 0.1 10^3/uL N 0-0.2 Abs Nucleated RBC 0 10^3/uL Granulocyte % 58.0 % N 38-83 Lymphocyte % 19.1 % Low 25-47 Monocyte % 16.0 % High 0-7 Eosinophil % 6.1 % High 0-6 Basophil % 0.8 % N 0-2 Nucleated Red Blood Cells % 0 CMP Panel 01/31/2018 [facility] Sodium 136 mmol/L N 135-145 [address] [place] [address] [phone] Potassium 4.1 mmol/L N 3.5-5.0 Chloride 101 mmol/L N 101-111 Co2 Carbon Dioxide 27 mmol/L N 22-32 Anion Gap 8 mmol/L N 2-11 Glucose 85 mg/dL N 70-100 Blood Urea Nitrogen 23 mg/dL N 6-24 Creatinine 1.14 mg/dL N 0.67-1.17 BUN/Creatinine Ratio 20.2 High 8-20 Calcium 10.2 mg/dL N 8.6-10.3 Total Protein 7.6 g/dL N 6.4-8.9 Albumin 4.1 g/dL N 3.2-5.2 Globulin 3.5 g/dL N 2-4 Albumin/Globulin Ratio 1.2 N 1-3 Total Bilirubin 0.50 mg/dL N 0.2-1.0 Alkaline Phosphatase 79 U/L N 34-104 Alt 16 U/L N 7-52 Ast 21 U/L N 13-39 Egfr Non- 63.1 >60 Egfr 81.2 >60 12 Comp Metabolic Panel 12/06/2017 [facility] Sodium 137 mmol/L Low 139-145 [address] [place] [address] [phone] Potassium 4.2 mmol/L N 3.5-5.0 Chloride 102 mmol/L N 101-111 Co2 Carbon Dioxide 27 mmol/L N 22-32 Anion Gap 8 mmol/L N 2-11 Glucose 85 mg/dL N 70-100 Blood Urea Nitrogen 18 mg/dL N 6-24 Creatinine 1.18 mg/dL High 0.67-1.17 BUN/Creatinine Ratio 15.3 N 8-20 Calcium 10.2 mg/dL N 8.6-10.3 Total Protein 7.7 g/dL N 6.4-8.9 Albumin 4.1 g/dL N 3.2-5.2 Globulin 3.6 g/dL N 2-4 Albumin/Globulin Ratio 1.1 N 1-3 Total Bilirubin 0.50 mg/dL N 0.2-1.0 Alkaline Phosphatase 67 U/L N 34-104 Alt 16 U/L N 7-52 Ast 22 U/L N 13-39 Egfr Non- 60.7 >60 Egfr 78.0 >60 13 Laboratory test 12/06/2017 [facility] C Reactive 1.58 mg/L N < 5.00 [address] [place] [address] [phone] CBC Auto Diff 12/06/2017 [facility] White Blood 6.3 N 3.5- 10.[address] Count 10^3/[place] [address] [phone] Red Blood Count 4.56 10^6/uL N 4.0-5.4 Hemoglobin 14.3 g/dL N 14.0-18.0 Hematocrit 42 % N 42-52 Mean Corpuscular Volume 92 fL N 80-94 Mean Corpuscular Hemoglobin 32 pg High 27-31 Mean Corpuscular HGB Conc 34 g/dL N 31-36 Red Cell Distribution Width 13 % N 10.5-15 Platelet Count 240 10^3/uL N 150-450 Mean Platelet Volume 8.0 um3 N 7.4-10.4 Abs Neutrophils 3.6 10^3/uL N 1.5-7.7 Abs Lymphocytes 1.6 10^3/uL N 1.0-4.8 Abs Monocytes 0.8 10^3/uL N 0-0.8 Abs Eosinophils 0.2 10^3/uL N 0-0.6 Abs Basophils 0.1 10^3/uL N 0-0.2 Abs Nucleated RBC 0 10^3/uL Granulocyte % 57.5 % N 38-83 Lymphocyte % 25.3 % N 25-47 Monocyte % 12.7 % High 0-7 Eosinophil % 3.1 % N 0-6 Basophil % 1.4 % N 0-2 Nucleated Red Blood Cells % 0.1 Laboratory test 12/06/2017 [facility] Erythrocyte Sed 21 mm/Hr N 0-[address] [place] [address] [phone] Comp Metabolic 10/11/2017 [facility] Sodium 136 mmol/L N 133- [address] [place] [address] [phone] Potassium 4.2 mmol/L N 3.5-5.0 Chloride 103 mmol/L N 101-111 Co2 Carbon Dioxide 29 mmol/L N 22-32 Anion Gap 4 mmol/L N 2-11 Glucose 101 mg/dL High 70-100 Blood Urea Nitrogen 18 mg/dL N 6-24 Creatinine 1.07 mg/dL N 0.67-1.17 BUN/Creatinine Ratio 16.8 N 8-20 Calcium 10.0 mg/dL N 8.6-10.3 Total Protein 7.4 g/dL N 6.4-8.9 Albumin 3.9 g/dL N 3.2-5.2 Globulin 3.5 g/dL N 2-4 Albumin/Globulin Ratio 1.1 N 1-3 Total Bilirubin 0.40 mg/dL N 0.2-1.0 Alkaline Phosphatase 76 U/L N 34-104 Alt 14 U/L N 7-52 Ast 20 U/L N 13-39 Egfr Non- 67.9 >60 Egfr 87.4 >60 15 Laboratory test 10/11/2017 [facility] C Reactive 1.61 mg/L N < 5.00 [address] [place] [address] [phone] CBC Auto Diff 10/11/2017 [facility] White Blood 5.8 N 3.5- 10.[address] Count 10^3/[place] [address] [phone] Red Blood Count 4.31 10^6/uL N 4.0-5.4 Hemoglobin 13.3 g/dL Low 14.0-18.0 Hematocrit 40 % Low 42-52 Mean Corpuscular Volume 92 fL N 80-94 Mean Corpuscular Hemoglobin 31 pg N 27-31 Mean Corpuscular HGB Conc 34 g/dL N 31-36 Red Cell Distribution Width 13 % N 10.5-15 Platelet Count 304 10^3/uL N 150-450 Mean Platelet Volume 7 um3 Low 7.4-10.4 Abs Neutrophils 3.4 10^3/uL N 1.5-7.7 Abs Lymphocytes 1.6 10^3/uL N 1.0-4.8 Abs Monocytes 0.6 10^3/uL N 0-0.8 Abs Eosinophils 0.1 10^3/uL N 0-0.6 Abs Basophils 0 10^3/uL N 0-0.2 Abs Nucleated RBC 0 10^3/uL Granulocyte % 58.3 % N 38-83 Lymphocyte % 28.2 % N 25-47 Monocyte % 10.8 % High 0-7 Eosinophil % 2.5 % N 0-6 Basophil % 0.2 % N 0-2 Nucleated Red Blood Cells % 0.1 Laboratory test 10/11/2017 [facility] Erythrocyte Sed 30 mm/Hr N 0-[address] [place] [address] [phone] Connective Tissue 09/27/2017 [facility] Anti-Nuclear 0.5 U [address] [place] [address] [phone] Cyclic Citrullinated Peptide >250.0 U Abnormal 18 Interpretation See Comment 19 Laboratory test 09/27/2017 [facility] Rheumatoid Factor <15 IU/ mL <15 [address] [place] [address] [phone] Erythrocyte Sed Rate 33 mm/Hr N 0-40 C Reactive Protein 1.22 mg/L N < 5.00 21 CBC Auto Diff 09/27/2017 [facility] White Blood 5.6 10^3/uL N 3.5-10.[address] [place] [address] [phone] Red Blood Count 4.64 10^6/uL N 4.0-5.4 Hemoglobin 14.6 g/dL N 14.0-18.0 Hematocrit 43 % N 42-52 Mean Corpuscular Volume 92 fL N 80-94 Mean Corpuscular Hemoglobin 32 pg High 27-31 Mean Corpuscular HGB Conc 34 g/dL N 31-36 Red Cell Distribution Width 13 % N 10.5-15 Platelet Count 301 10^3/uL N 150-450 Mean Platelet Volume 8 um3 N 7.4-10.4 Abs Neutrophils 3.0 10^3/uL N 1.5-7.7 Abs Lymphocytes 1.7 10^3/uL N 1.0-4.8 Abs Monocytes 0.7 10^3/uL N 0-0.8 Abs Eosinophils 0.1 10^3/uL N 0-0.6 Abs Basophils 0.1 10^3/uL N 0-0.2 Abs Nucleated RBC 0 10^3/uL Granulocyte % 53.6 % N 38-83 Lymphocyte % 30.7 % N 25-47 Monocyte % 12.5 % High 1-9 Eosinophil % 2.0 % N 0-6 Basophil % 1.2 % N 0-2 Nucleated Red Blood Cells % 0.2 Comp Metabolic Panel 09/27/2017 [facility] Sodium 137 mmol/L N 133-[address] [place] [address] [phone] Potassium 4.3 mmol/L N 3.5-5.0 Chloride 102 mmol/L N 101-111 Co2 Carbon Dioxide 29 mmol/L N 22-32 Anion Gap 6 mmol/L N 2-11 Glucose 78 mg/dL N 70-100 Blood Urea Nitrogen 20 mg/dL N 6-24 Creatinine 1.23 mg/dL High 0.67-1.17 BUN/Creatinine Ratio 16.3 N 8-20 Calcium 10.3 mg/dL N 8.6-10.3 Total Protein 7.6 g/dL N 6.4-8.9 Albumin 4.2 g/dL N 3.2-5.2 Globulin 3.4 g/dL N 2-4 Albumin/Globulin Ratio 1.2 N 1-3 Total Bilirubin 0.40 mg/dL N 0.2-1.0 Alkaline Phosphatase 71 U/L N 34-104 Alt 15 U/L N 7-52 Ast 21 U/L N 13-39 Egfr Non- 57.8 >60 Egfr 74.4 >60 22 Vitamin B12 And 09/27/2017 [facility] Vitamin B12 668 pg/mL N 180-914 23 Folate Serum [address] [place] [address] [phone] Folic Acid (Folate) > 20.00 ng/mL >3.99 Anca AB Ser If 09/27/2017 [facility] C-Anca Negative Negative [address] [place] [address] [phone] P-Anca Negative Negative 24 Laboratory test 09/27/2017 [facility] Vitamin D, 52 pg/mL 18- 64 [address] 1,25 [place] [address] [phone] Quantiferon Gold 09/27/2017 [facility] QuantiFERON-Tb Negative Negative [address] [place] [address] [phone] TB1 Ag minus Nil Result 0 IU/mL TB2 Ag minus Nil Result 0 IU/mL TB Mitogen minus Nil Result 8.82 IU/mL TB Nil Result 0.02 IU/mL 27 Laboratory test 06/12/2017 [facility] Cancellous SEE RESULTS 28, [address] Chips 5cc BELO <[place] [address] NOTE> [phone] DBX 10.0 SEE RESULTS BELO <SEE NOTE> 30 CBC No Diff 06/06/2017 [facility] White Blood 5.5 10^3/uL N 3.5-10.[address] [place] [address] [phone] Red Blood Count 4.35 10^6/uL N 4.0-5.4 Hemoglobin 14.2 g/dL N 14.0-18.0 Hematocrit 43 % N 42-52 Mean Corpuscular Volume 99 fL High 80-94 Mean Corpuscular Hemoglobin 33 pg High 27-31 Mean Corpuscular HGB Conc 33 g/dL N 31-36 Red Cell Distribution Width 14 % N 10.5-15 Platelet Count 259 10^3/uL N 150-450 Mean Platelet Volume 9 um3 N 7.4-10.4 Basic Metabolic Panel 06/06/2017 [facility] Sodium 137 mmol/L N 133-[address] [place] [address] [phone] Potassium 4.9 mmol/L N 3.5-5.0 Chloride 103 mmol/L N 101-111 Co2 Carbon Dioxide 28 mmol/L N 22-32 Anion Gap 6 mmol/L N 2-11 Glucose 94 mg/dL N 70-100 Blood Urea Nitrogen 17 mg/dL N 6-24 Creatinine 1.01 mg/dL N 0.67-1.17 BUN/Creatinine Ratio 16.8 N 8-20 Calcium 10.3 mg/dL N 8.6-10.3 Egfr Non- 72.8 N >60 Egfr 93.7 N >60 31 1 No evidence of antibodies to B. burgdorferi detected. False negative results may occur in recently infected patients (<=2 weeks) due to low or undetectable antibody levels to B. burgdorferi. If recent exposure is suspected, a second sample should be collected and tested in 2-4 weeks. Test Performed by: [facility] [place] [address] 2 AM 8.7-22.4 PM <10 3 REFERENCE VALUE <1.0 (Negative) Test Performed by: [facility] [place] [address] 4 REFERENCE VALUE <1.0 (Negative) 5 REFERENCE VALUE <1.0 (Negative) Test Performed by: [facility] [place] [address] 6 Interpretation: Strong Positive (>=60.0) REFERENCE VALUE <20.0 (Negative) Test Performed by: [facility] [place] [address] 7 REFERENCE VALUE <1:80 (Negative) 8 Test Performed by: [place] [address] 9 Because ethnic data is not always readily available, this report includes an eGFR for both -Americans and non- Americans. The National Kidney Disease Education Program (NKDEP) does not endorse the use of the MDRD equation for patients that are not between the ages of 18 and 70, are , have extremes of body size, muscle mass, or nutritional status, or are non- or non-. According to the National Kidney Foundation, irrespective of diagnosis, the stage of the disease is based on the level of kidney function: Stage Description GFR(mL/min/1.73 m(2)) 1 Kidney damage with normal or decreased GFR 90 2 Kidney damage with mild decrease in GFR 60-89 3 Moderate decrease in GFR 30-59 4 Severe decrease in GFR 15-29 5 Kidney failure <15 (or dialysis) 10 Because ethnic data is not always readily available, this report includes an eGFR for both -Americans and non- Americans. The National Kidney Disease Education Program (NKDEP) does not endorse the use of the MDRD equation for patients that are not between the ages of 18 and 70, are , have extremes of body size, muscle mass, or nutritional status, or are non- or non-. According to the National Kidney Foundation, irrespective of diagnosis, the stage of the disease is based on the level of kidney function: Stage Description GFR(mL/min/1.73 m(2)) 1 Kidney damage with normal or decreased GFR 90 2 Kidney damage with mild decrease in GFR 60-89 3 Moderate decrease in GFR 30-59 4 Severe decrease in GFR 15-29 5 Kidney failure <15 (or dialysis) 11 Because ethnic data is not always readily available, this report includes an eGFR for both -Americans and non- Americans. The National Kidney Disease Education Program (NKDEP) does not endorse the use of the MDRD equation for patients that are not between the ages of 18 and 70, are , have extremes of body size, muscle mass, or nutritional status, or are non- or non-. According to the National Kidney Foundation, irrespective of diagnosis, the stage of the disease is based on the level of kidney function: Stage Description GFR(mL/min/1.73 m(2)) 1 Kidney damage with normal or decreased GFR 90 2 Kidney damage with mild decrease in GFR 60-89 3 Moderate decrease in GFR 30-59 4 Severe decrease in GFR 15-29 5 Kidney failure <15 (or dialysis) 12 Because ethnic data is not always readily available, this report includes an eGFR for both -Americans and non- Americans. The National Kidney Disease Education Program (NKDEP) does not endorse the use of the MDRD equation for patients that are not between the ages of 18 and 70, are , have extremes of body size, muscle mass, or nutritional status, or are non- or non-. According to the National Kidney Foundation, irrespective of diagnosis, the stage of the disease is based on the level of kidney function: Stage Description GFR(mL/min/1.73 m(2)) 1 Kidney damage with normal or decreased GFR 90 2 Kidney damage with mild decrease in GFR 60-89 3 Moderate decrease in GFR 30-59 4 Severe decrease in GFR 15-29 5 Kidney failure <15 (or dialysis) 13 Because ethnic data is not always readily available, this report includes an eGFR for both -Americans and non- Americans. The National Kidney Disease Education Program (NKDEP) does not endorse the use of the MDRD equation for patients that are not between the ages of 18 and 70, are , have extremes of body size, muscle mass, or nutritional status, or are non- or non-. According to the National Kidney Foundation, irrespective of diagnosis, the stage of the disease is based on the level of kidney function: Stage Description GFR(mL/min/1.73 m(2)) 1 Kidney damage with normal or decreased GFR 90 2 Kidney damage with mild decrease in GFR 60-89 3 Moderate decrease in GFR 30-59 4 Severe decrease in GFR 15-29 5 Kidney failure <15 (or dialysis) 14 Acute inflammation: >10.00 15 Because ethnic data is not always readily available, this report includes an eGFR for both -Americans and non- Americans. The National Kidney Disease Education Program (NKDEP) does not endorse the use of the MDRD equation for patients that are not between the ages of 18 and 70, are , have extremes of body size, muscle mass, or nutritional status, or are non- or non-. According to the National Kidney Foundation, irrespective of diagnosis, the stage of the disease is based on the level of kidney function: Stage Description GFR(mL/min/1.73 m(2)) 1 Kidney damage with normal or decreased GFR 90 2 Kidney damage with mild decrease in GFR 60-89 3 Moderate decrease in GFR 30-59 4 Severe decrease in GFR 15-29 5 Kidney failure <15 (or dialysis) 16 Acute inflammation: >10.00 17 REFERENCE VALUE <=1.0 (Negative) 18 Interpretation: Strong Positive (>=60.0) REFERENCE VALUE <20.0 (Negative) 19 RESULT: Compatible with rheumatoid arthritis. Test Performed by: [place] [address] 20 Test Performed by: [place] [address] 21 Acute inflammation: >10.00 22 Because ethnic data is not always readily available, this report includes an eGFR for both -Americans and non- Americans. The National Kidney Disease Education Program (NKDEP) does not endorse the use of the MDRD equation for patients that are not between the ages of 18 and 70, are , have extremes of body size, muscle mass, or nutritional status, or are non- or non-. According to the National Kidney Foundation, irrespective of diagnosis, the stage of the disease is based on the level of kidney function: Stage Description GFR(mL/min/1.73 m(2)) 1 Kidney damage with normal or decreased GFR 90 2 Kidney damage with mild decrease in GFR 60-89 3 Moderate decrease in GFR 30-59 4 Severe decrease in GFR 15-29 5 Kidney failure <15 (or dialysis) 23 Normal Range 180 to 914 Indeterminate Range 145 to 180 Deficient Range <145 24 Negative for cANCA and pANCA patterns by immunofluorescence. ADDITIONAL INFORMATION This test was developed and its performance characteristics determined by [facility] in a manner consistent with CLIA requirements. This test has not been cleared or approved by the U.S. Food and Drug Administration. Test Performed by: [facility] - [address] [address] 25 ADDITIONAL INFORMATION This test was developed and its performance characteristics determined by [facility] in a manner consistent with CLIA requirements. This test has not been cleared or approved by the U.S. Food and Drug Administration. Test Performed by: [facility] - [address] [address] 26 No interferon-gamma response to M. tuberculosis antigens was detected. Infection with M. tuberculosis is unlikely. A single negative result does not exclude infection with M. tuberculosis. In patients at high risk for M.tuberculosis infection, a second test should be considered in accordance with the 2017 ATS/IDSA/CDC Clinical Practice Guidelines for Diagnosis of Tuberculosis in Adults and Children [Thelman DERRELL et. al. Clin. Infect. Dis. 2017;64(2):111-115]. 27 Test Performed by: [facility] - [address] [address] 28 OTHER SPONDYLOSIS WITH MYELOPATHY, CERVICAL REGION 29 SEE RESULTS BELOW [id number] CANC CHIPS 5CC TRANSFUSED 06/13/17 0732 [id number] CANC CHIPS 5CC TRANSFUSED 06/13/17 0730 30 SEE RESULTS BELOW [id number] DBX 10.0 TRANSFUSED 06/13/17 0734 31 Because ethnic data is not always readily available, this report includes an eGFR for both -Americans and non- Americans. The National Kidney Disease Education Program (NKDEP) does not endorse the use of the MDRD equation for patients that are not between the ages of 18 and 70, are , have extremes of body size, muscle mass, or nutritional status, or are non- or non-. According to the National Kidney Foundation, irrespective of diagnosis, the stage of the disease is based on the level of kidney function: Stage Description GFR(mL/min/1.73 m(2)) 1 Kidney damage with normal or decreased GFR 90 2 Kidney damage with mild decrease in GFR 60-89 3 Moderate decrease in GFR 30-59 4 Severe decrease in GFR 15-29 5 Kidney failure <15 (or dialysis) Procedures Date Code Description Status 08/24/2018 47206 Nerve Conduction 07-08 Studies Completed 08/24/2018 75482 Needle Electromyography Complete, Five Or More Muscles Completed Studied 11/06/2017 52893 Arthroscopy Shoulder,W/Rotator Cuff Repair Completed 11/06/2017 45123 Arthroscopy Shoulder,W/Rotator Cuff Repair Completed 11/06/2017 06785 Arthroscopy Shoulder Debridement Extensive Completed 11/06/2017 99817 Arthroscopy Shoulder Debridement Extensive Completed 06/13/2017 54277 Arthrodesis Below C2 Posterior Completed 06/13/2017 60445 Arthrodesis Below C2 Posterior Completed 06/13/2017 90084 Arthrodsis, Post, Addl Segment Completed 06/13/2017 19878 Arthrodsis, Post, Addl Segment Completed 06/13/2017 44220 Post Segmental Instrumentation 3-6 Segments Completed 06/13/2017 44397 Post Segmental Instrumentation 3-6 Segments Completed 06/13/2017 32637 Laminectomy W/Expl &/Or Decomp Of Spinal Cord &/Or Cauda Completed [facility] 06/13/2017 08002 Laminectomy W/Expl &/Or Decomp Of Spinal Cord &/Or Cauda Completed Equina 06/06/2017 20656 EKG, Interpretation Only Completed 09/15/2016 55923 Inject Tendon Sheath Or Ligament Aponeurosis Eg Plantar Completed Fascia 05/07/2014 70009 Rad Shoulder Comp, Min. 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 tear/ruptr of left shoulder, not trauma Office Visit 10/04/2017 10:00a Orthopedic Julien Horn75.42 Impingement Services Of Francisco Peralta syndrome of left [facility].M.[facility]. shoulder M75.41 Impingement syndrome of right shoulder Office Visit 09/27/2017 2:00p Rheumatology Danny Smith M05.79 Rheu arthritis Services Of Yoly Singh w rheu factor mult site w/o org/sys involv M47.12 Other spondylosis with myelopathy, cervical region Z79.899 Other detention (current) drug therapy Z79.52 nursing home (current) use of systemic steroids I73.00 Raynaud's syndrome without gangrene R20.8 Other disturbances of skin sensation Office Visit 05/08/2017 Neurosurgery Eusebio Bryant M47.12 Other spondylosis 9:00a Services Of Yoly Singh with myelopathy, cervical region Office Visit 01/16/2017 Neurosurgery Eusebio Bryant M47.12 Other spondylosis 2:30p Services Of Visual Merchandiser M.D. with myelopathy, cervical region Office Visit 01/04/2017 Orthopedic Keila M54.12 Radiculopathy, 9:00a Services Of DYLAN Ochoa cervical region M75.111 Incomplete rotatr-cuff tear/ruptr of r shoulder, not trauma Office Visit 12/21/2016 Orthopedic Keila M54.12 Radiculopathy, 11:00a Services Of DYLAN Sheriff cervical region C.M.A. Office Visit 09/15/2016 Orthopedic Codie M65.311 Trigger thumb, 10:45a Services Of ZULEIKA Bella right thumb C.M.A. M65.312 Trigger thumb, left thumb Office Visit 09/03/2015 Orthopedic Julien S46.811A Strain of 2:30p Services Of Francisco Peralta musc/fasc/tend at C.M.A. shldr/up arm, right arm, init S46.812A Strain of musc/fasc/tend at shldr/up arm, left arm, init Office Visit 05/13/2015 1:30p Orthopedic Julien M75.111 Incomplete Services Of Francisco Peralta rotatr-cuff C.M.A. tear/ruptr of r shoulder, not trauma Office Visit 05/27/2014 2:00p Orthopedic Julien 840.4 Sprains & Strains Services Of Francisco Peralta Rotator Cuff C.M.A. (Capsule) Office Visit 05/07/2014 3:00p Orthopedic Julien 840.4 Sprains & Strains Services Of Francisco Peralta Rotator Cuff C.M.A. (Capsule) Plan of Treatment Future Appointment(s):11/14/2018 9:45 am - Eusebio Reina M.D. at [facility]10/05/2018 10:40 am - Danny Smith M.D. at [facility]09/05/2018 9:30 am - Julien Peralta M.D. at [facility]/30/2018 9:20 am - Danny Smith M.D. at [facility]09/04/2018 - Eusebio Reina M.D.M62.81 Muscle weakness (generalized)Follow up:2 MONTHS
--- OUTSIDE RECORDS SUMMARY | 2018-09-05 09:17 | XMS REPORT | Continuity of Care Document ---
:1945 External Reference #:[id number] Author Name Chasidy Stewart Care Team Providers Name Role Phone Eusebio Avina M.D. Primary Care Physician Unavailable Payers Type Date Identification Numbers Payment Provider Subscriber Policy Number: [id number] Medicare Fish Guido Kirk PayID: [id number] [address] [place] [address] Effective: 2010 Policy Number: [id number] Medicare Fish Bradley Expires: 2018 PayID: [id number] [address] [place] [address] Effective: 2012 Policy Number: [id number] [facility] Fish Guido Kirk PayID: [id number] [address] [address] [place] Marinelli [address] Advance Directives Description No Information Available Problems [...] a day Spiriva / Active Capsules 18mcg [place], Handihaler 0000 MD Nestor Pravastatin / Active [...] Code Status Date Vaccine Reaction Lot # 05337 Given 05/02/2018 Influenza Virus Vaccine, no immediate reaction [id number] Quadrivalent, Split, noted Preservative Free [id number] Given 10/20/2017 Pneumococcal Conjugate Vaccine 13 Valent For Intramuscular Use Vital Signs Date Vital Result Comment 09/04/2018 8:40am Height 68.5 inches 5'8.50" Weight [...] Result H/L Range Note Laboratory test 08/30/2018 [facility] Lyme Disease Negative Negative [address] [place] [address] [phone] TSH (Thyroid Stim Horm) 1.20 mcIU/mL N 0.34-5.60 Cortisol 6.46 g/dL 2 Monica-1 Antibody <0.2 U 3 Ssa/SSB Abs Igg 08/30/2018 [facility] SS-A/Ro Antibody <0.[address] [place] [address] [phone] SS-B/La Antibody <0.2 U 5 Laboratory 08/30/2018 [facility] Cyclic >250.0 U Abnormal [address] [place] [address] Igg [phone] Nuclear AB 08/30/2018 [facility] Nuclear Ab (Addie) Positive Abnormal 7 (Addie) By [address] DR[address] by Ifa, IgG 1:640 [place] [address] [phone] Addie Titer: 1:640 Addie Pattern: Homogeneous 8 Laboratory test 08/30/2018 [facility] Erythrocyte Sed 33 mm/Hr N 0-[address] [place] [address] [phone] Creatine Kinase(CK) 61 U/L N 10-223 C Reactive Protein 1.02 mg/L N <8.01 Laboratory test 08/02/2018 [facility] Erythrocyte Sed 18 mm/Hr N 0-[address] [place] [address] [phone] CBC Auto Diff 08/02/2018 [facility] White Blood 5.4 N 3.5- 10.8 DRIVE Count 10^3/[place] [address] [phone] Red Blood Count 4.47 10^6/uL N 4.00-5.40 [...] Blood Cells % 0.1 Laboratory test 08/02/2018 [facility] C Reactive 1.21 mg/L N < 8.[address] [place] [address] [phone] Comp Metabolic 08/02/2018 [facility] Sodium 140 mmol/L N 135- 145 Panel [address] [place] [address] [phone] Potassium 4.3 mmol/L N 3.5-5.0 Chloride 106 [...] 73.2 >60 9 Comp Metabolic Panel 06/07/2018 [facility] Sodium 138 mmol/L N 135-[address] [place] [address] [phone] Potassium 4.3 mmol/L N 3.5-5.0 Chloride 105 [...] Egfr 89.9 >60 10 Laboratory test 06/07/2018 [facility] C Reactive < 1.00 N < 8.[address] Protein mg/[place] [address] [phone] CBC Auto Diff 06/07/2018 [facility] White Blood 6.1 N 3.5- 10.[address] Count 10^3/[place] [address] [phone] Red Blood Count 4.45 10^6/uL N 4.00-5.40 [...] Blood Cells % 0.1 Laboratory test 06/07/2018 [facility] Erythrocyte Sed 23 mm/Hr N 0-[address] [place] [address] [phone] Laboratory test 05/02/2018 [facility] Standing Orders Esr Sedimentation <pending> finding Rate CRP C-Reactive Protein <pending> CBC W/Auto Diff 05/02/2018 [facility] Standing Orders White Blood Count <pending> RBC [...] <pending> Absolute Neutrophils <pending> CMP Panel 05/02/2018 [facility] Standing Orders Albumin <pending> Alt - SGPT <pending> Calcium <pending> Carbon Dioxide <pending> Chloride <pending> Creatinine <pending> Glucose Serum <pending> Alkaline Phosphatase <pending> Potassium <pending> Total Protein <pending> Sodium <pending> Ast - Sgot <pending> BUN - Urea Nitrogen <pending> Comp Metabolic Panel 04/12/2018 [facility] Sodium 137 mmol/L N 135-[address] [place] [address] [phone] Potassium 4.5 mmol/L N 3.5-5.0 Chloride 104 [...] Egfr 76.4 >60 11 Laboratory test 04/12/2018 [facility] C Reactive 1.68 mg/L N < 8.[address] [place] [address] [phone] CBC Auto Diff 04/12/2018 [facility] White Blood 8.9 N 3.5- 10.[address] Count 10^3/[place] [address] [phone] Red Blood Count 4.36 10^6/uL N 4.00-5.40 [...] Blood Cells % 0.1 Laboratory test 04/12/2018 [facility] Erythrocyte Sed 23 mm/Hr N 0-[address] [place] [address] [phone] Laboratory test 01/31/2018 [facility] Erythrocyte Sed 34 mm/Hr N 0-[address] [place] [address] [phone] C Reactive Protein 5.19 mg/L N <8.01 CBC W/Auto 01/31/2018 [facility] White Blood 6.4 10^3/uL N 3.5 -10.[address] [place] [address] [phone] Red Blood Count 4.79 10^6/uL N 4.00-5.40 [...] Blood Cells % 0 CMP Panel 01/31/2018 [facility] Sodium 136 mmol/L N 135-145 [address] [place] [address] [phone] Potassium 4.1 mmol/L N 3.5-5.0 Chloride 101 [...] 81.2 >60 12 Comp Metabolic Panel 12/06/2017 [facility] Sodium 137 mmol/L Low 139-145 [address] [place] [address] [phone] Potassium 4.2 mmol/L N 3.5-5.0 Chloride 102 [...] Egfr 78.0 >60 13 Laboratory test 12/06/2017 [facility] C Reactive 1.58 mg/L N < 5.00 [address] [place] [address] [phone] CBC Auto Diff 12/06/2017 [facility] White Blood 6.3 N 3.5- 10.[address] Count 10^3/[place] [address] [phone] Red Blood Count 4.56 10^6/uL N 4.0-5.4 [...] Blood Cells % 0.1 Laboratory test 12/06/2017 [facility] Erythrocyte Sed 21 mm/Hr N 0-[address] [place] [address] [phone] Comp Metabolic 10/11/2017 [facility] Sodium 136 mmol/L N 133- [address] [place] [address] [phone] Potassium 4.2 mmol/L N 3.5-5.0 Chloride 103 [...] Egfr 87.4 >60 15 Laboratory test 10/11/2017 [facility] C Reactive 1.61 mg/L N < 5.00 [address] [place] [address] [phone] CBC Auto Diff 10/11/2017 [facility] White Blood 5.8 N 3.5- 10.[address] Count 10^3/[place] [address] [phone] Red Blood Count 4.31 10^6/uL N 4.0-5.4 [...] Blood Cells % 0.1 Laboratory test 10/11/2017 [facility] Erythrocyte Sed 30 mm/Hr N 0-[address] [place] [address] [phone] Connective Tissue 09/27/2017 [facility] Anti-Nuclear 0.5 U [address] [place] [address] [phone] Cyclic Citrullinated Peptide >250.0 U Abnormal 18 Interpretation See Comment 19 Laboratory test 09/27/2017 [facility] Rheumatoid Factor <15 IU/ mL <15 [address] [place] [address] [phone] Erythrocyte Sed Rate 33 mm/Hr N 0-40 C Reactive Protein 1.22 mg/L N < 5.00 21 CBC Auto Diff 09/27/2017 [facility] White Blood 5.6 10^3/uL N 3.5-10.[address] [place] [address] [phone] Red Blood Count 4.64 10^6/uL N 4.0-5.4 [...] Cells % 0.2 Comp Metabolic Panel 09/27/2017 [facility] Sodium 137 mmol/L N 133-145 [address] [place] [address] [phone] Potassium 4.3 mmol/L N 3.5-5.0 Chloride 102 [...] 74.4 >60 22 Vitamin B12 And 09/27/2017 [facility] Vitamin B12 668 pg/mL N 180-914 23 Folate Serum [address] [place] [address] [phone] Folic Acid (Folate) > 20.00 ng/mL >3.99 Anca AB Ser If 09/27/2017 [facility] C-Anca Negative Negative [address] [place] [address] [phone] P-Anca Negative Negative 24 Laboratory test 09/27/2017 [facility] Vitamin D, 52 pg/mL 18- 64 25 finding [address] [facility] 1,25 [place] [address] [phone] Quantiferon Gold 09/27/2017 [facility] QuantiFERON-Tb Negative Negative [address] [place] [address] [phone] TB1 Ag minus Nil Result 0 IU/mL TB2 Ag minus Nil Result 0 IU/mL TB Mitogen minus Nil Result 8.82 IU/mL TB Nil Result 0.02 IU/mL 27 Laboratory test 06/12/2017 [facility] Cancellous SEE RESULTS 28, [address] Chips 5cc BELO <[place] [address] NOTE> [phone] DBX 10.0 SEE RESULTS BELO <SEE NOTE> 30 CBC No Diff 06/06/2017 [facility] White Blood 5.5 10^3/uL N 3.5-10.[address] [place] [address] [phone] Red Blood Count 4.35 10^6/uL N 4.0-5.4 [...] um3 N 7.4-10.4 Basic Metabolic Panel 06/06/2017 [facility] Sodium 137 mmol/L N 133-[address] [place] [address] [phone] Potassium 4.9 mmol/L N 3.5-5.0 Chloride 103 [...] tested in 2-4 weeks. Test Performed by: [facility] [address] [place] [address] 2 AM 8.7-22.4 PM <10 3 REFERENCE VALUE <1.0 (Negative) Test Performed by: [facility] [place] [address] 4 REFERENCE VALUE <1.0 (Negative) 5 REFERENCE VALUE <1.0 (Negative) Test Performed by: [facility] [place] [address] 6 Interpretation: Strong Positive (>=60.0) REFERENCE VALUE <20.0 (Negative) Test Performed by: [facility] [place] [address] 7 REFERENCE VALUE <1:80 (Negative) 8 Test Performed by: [facility] [place] [address] 9 Because ethnic data is not always [...] Compatible with rheumatoid arthritis. Test Performed by: [place] [address] 20 Test Performed by: [place] [address] 21 Acute inflammation: >10.00 22 Because ethnic [...] developed and its performance characteristics determined by [facility] in a manner consistent with CLIA requirements. This test has not been cleared or approved by the U.S. Food and Drug Administration. Test Performed by: [place] [id number] 25 ADDITIONAL INFORMATION This test was developed and its performance characteristics determined by [facility] in a manner consistent with CLIA requirements. This test has not been cleared or approved by the U.S. Food and Drug Administration. Test Performed by: [facility] - [address] [address] 26 No interferon-gamma response to M. tuberculosis [...] Infect. Dis. 2017;64(2):111-115]. 27 Test Performed by: [facility] - [address] [address] 28 OTHER SPONDYLOSIS WITH MYELOPATHY, CERVICAL REGION 29 SEE RESULTS BELOW [id number] CANC CHIPS 5CC TRANSFUSED 06/13/17 0732 [id number] CANC CHIPS 5CC TRANSFUSED 06/13/17 0730 30 SEE RESULTS BELOW [id number] DBX 10.0 TRANSFUSED 06/13/17 0734 31 Because [...] dialysis) Procedures Date Code Description Status 08/24/2018 80534 Nerve Conduction 07-08 Studies Completed 08/24/2018 76621 Needle Electromyography Complete, Five Or More Muscles Completed Studied 11/06/2017 94115 Arthroscopy Shoulder,W/Rotator Cuff Repair Completed 11/06/2017 56165 Arthroscopy Shoulder,W/Rotator Cuff Repair Completed 11/06/2017 24361 Arthroscopy Shoulder Debridement Extensive Completed 11/06/2017 17988 Arthroscopy Shoulder Debridement Extensive Completed 06/13/2017 37417 Arthrodesis Below C2 Posterior Completed 06/13/2017 11772 Arthrodesis Below C2 Posterior Completed 06/13/2017 43539 Arthrodsis, Post, Addl Segment Completed 06/13/2017 00416 Arthrodsis, Post, Addl Segment Completed 06/13/2017 94572 Post Segmental Instrumentation 3-6 Segments Completed 06/13/2017 08648 Post Segmental Instrumentation 3-6 Segments Completed 06/13/2017 19646 Laminectomy W/Expl &/Or Decomp Of Spinal Cord &/Or Cauda Completed Equina 06/13/2017 10113 Laminectomy W/Expl &/Or Decomp Of Spinal Cord &/Or Cauda Completed Equina 06/06/2017 10365 EKG, Interpretation Only Completed 09/15/2016 95282 Inject Tendon Sheath Or Ligament Aponeurosis Eg Plantar Completed Fascia 05/07/2014 25312 Rad Shoulder Comp, Min. 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 tear/ruptr of left shoulder, not trauma Office Visit 10/04/2017 10:00a Orthopedic Julien M75.42 Impingement Services Of Francisco Peralta syndrome of left C.M.A. shoulder M75.41 Impingement syndrome of right shoulder Office Visit 09/27/2017 2:00p Rheumatology Danny Smith M05.79 Rheu arthritis Services Of Yoly Singh w rheu factor mult site w/o org/sys involv M47.12 Other spondylosis with myelopathy, cervical region Z79.899 Other halfway (current) drug therapy Z79.52 terminal operator (current) use of systemic steroids I73.00 Raynaud's syndrome without gangrene R20.8 Other disturbances of skin sensation Office Visit 05/08/2017 Neurosurgery Eusebio Bryant M47.12 Other spondylosis 9:00a Services Of Yoly Singh with myelopathy, cervical region Office Visit 01/16/2017 Neurosurgery Eusebio Bryant M47.12 Other spondylosis 2:30p Services Of Yoly Singh with myelopathy, cervical region Office Visit 01/04/2017 Orthopedic Keila M54.12 Radiculopathy, 9:00a Services Of DYLAN Ochoa cervical region M75.111 Incomplete rotatr-cuff tear/ruptr of r shoulder, not trauma Office Visit 12/21/2016 Orthopedic Keila M54.12 Radiculopathy, 11:00a Services Of DYLAN Sheriff cervical region C.M.A. Office Visit 09/15/2016 Orthopedic Codie M65.311 Trigger thumb, 10:45a Services Of LEXIE Bella-C right thumb C.M.A. M65.312 Trigger thumb, left [...] Cuff C.M.A. (Capsule) Plan of Treatment Future Appointment(s):10/05/2018 10:40 am - Danny Smith M.D. at Rheumatology [facility]09/05/2018 9:30 am - Julien Peralta M.D. at Orthopedic [facility]10/30/2018 9:20 am - Danny Smith M.D. at [facility]/04/2018 - Danny Smith M.D.M62.81 Muscle weakness ( generalized)R76.0 Raised antibody ijmirJ31.00 Raynaud's syndrome without yitkecqkC95.79 Rheumatoid arthritis with rheumatoid factor of multiple siteR06.00 Dyspnea, knmqttkakytW05.0 Abdominal distension (gaseous)R20.8 Other disturbances of skin xaielngmsJ32.9 Anemia, unspecifiedComments:Please hold your PravastatinFollow up:Follow up in 3 to 4 weeks or sooner if needed
--- NOTE | 2018-09-05 11:00 | ED ---
Shortness of Breath - HPI Summary HPI Summary: This pt is a 73 y/o male presenting to [facility] c/o SOB and lower mid chest pain for the past couple of weeks, worsening since 2 days ago. Pt reports his SOB and chest pain are related and come about together. Associated symptom of nausea. He describes his chest pain "like something is there" and "closes your air off and you can't breathe." Pain is worse with movement and pressure. Chest pain is located "below the rib cage in the middle." Pt notes 2 days ago he exerted himself with the snow storm. Since 2 days ago pt feels more SOB with short distance ambulation and exertion. Lying down and taking Tums make symptoms better. Pt with hx of emphysema and has a chronic cough. Denies fever, chills, night sweats, vomiting, headache, blurry vision, double vision, ear ache , sore throat, neck pain, burning with urination, hematuria, blood in stool. Diarrhea yesterday morning, this morning he had normal bowel movement. Additionally notes decreased appetite and weight loss. His celery stripper is Dr. Franco, in [place], and last time pt saw him was last month. PMHx: emphysema, RA, Raynaud's, HTN, chronic right shoulder pain, cardiac catheterization (last one was 3-4 years ago). Cardiac cath didn't show blockages in the arteries and no stents, per . No hx of cardiac disease, CA , stroke. Pt is working with Dr. Reina and Dr. Peralta to get tested for Lupus. notes pt's tests are scheduled for Sep.20. Pt had an appointment with Dr. Peralta for right shoulder pain but cancelled to come to the ED. 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 - Onset/Duration: Lasting Days, Still Present Timing: Constant Dyspnea At: Exertion Aggrevating Factors: Nothing Alleviating Factors: Nothing Associated Signs & Symptoms: Cough (Nonproductive) - chronic from emphysema, Chest Pain Unrelated to Cough - Allergy/Home Medications Allergies/Adverse Reactions: Allergies Allergy/AdvReac Type Severity Reaction Status Date / Time bupropion [From Wellbutrin] Allergy Rash Verified 09/05/18 08:59 hydrocodone Allergy Difficulty Verified 09/05/18 08:59 Breathing/Wheezing Sulfa (Sulfonamide Allergy Rash Verified 09/05/18 08:59 Antibiotics) PMH/Surg Hx/FS Hx/Imm Hx Endocrine/Hematology History: Denies: Hx Diabetes, Hx Thyroid Disease Cardiovascular History: Reports: Hx Coronary Artery Disease, Hx Hypertension - ON MEDICATION, Other Cardiovascular Problems/Disorders - HIGH CHOLESTEROL Denies: Hx Pacemaker/ICD Respiratory History: Reports: Hx Asthma, Hx Chronic Obstructive Pulmonary Disease (COPD), Other Respiratory Problems/Disorders - COPD GI History: Reports: Hx Hiatal Hernia Denies: Hx Ulcer History: Reports: Hx Kidney Stones Denies: Hx Renal Disease Musculoskeletal History: Reports: Hx Arthritis - RA Sensory History: Reports: Hx Cataracts, Hx Hearing Problem - IMPLANTS Denies: Hx Contacts or Glasses - [place], Hx Hearing Aid Opthamlomology History: Reports: Hx Cataracts Denies: Hx Contacts or Glasses - [place] Neurological History: Denies: Other Neuro Impairments/Disorders Psychiatric History: Denies: Hx Panic Disorder - Surgical History Surgery Procedure, Year, and Place: CARPAL TUNNEL RIGHT WRIST. LT LITTLE FINGER SURGERY. 03/19 LITHOTRIPSY. KIDNEY RECONSTRUCTION 2010 - " CLEANED OUT" . BILATERAL CATARACTS. NECK SURGERY 2017. cardiac angioplasty to small heart vessels [facility] Hx Anesthesia Reactions: No Infectious Disease History: No Infectious Disease History: Denies: Hx Hepatitis, Hx Human Immunodeficiency Virus (HIV), Traveled Outside the [place] in Last 30 Days - Family History Known Family History: Positive: Cardiac Disease, Diabetes - Social History Alcohol Use: None Alcohol Amount: 1/2 beer a night Substance Use Type: Reports: None Hx Tobacco Use: Yes Smoking Status (MU): Former Smoker Amount Used/How Often: smoked 42 years 1ppd Have You Smoked in the Last Year: No Review of Systems Constitutional: Other - POS: decreased appetite, weight loss Negative: Fever, Chills, Skin Diaphoresis Negative: Blurred Vision, Diplopia Negative: Sore Throat, Ear Ache Negative: Chest Pain Positive: Shortness Of Breath, Cough - chronic Positive: Nausea. Negative: Vomiting, Other - NEG: blood in stool Negative: dysuria, hematuria Musculoskeletal: Other - POS: chronic right shoulder pain Negative: Other - NEG: neck pain Negative: Headache All Other Systems Reviewed And Are Negative: No Physical Exam - Summary Physical Exam Summary: Appearance: Alert, conversive, nontoxic appearing Skin: Warm, dry, no mottling, no rashes, no contusions HEENT: EOMI, PERRL, moist mucous membranes Neck: No masses on the neck, supple Respiratory: Clear to auscultation, breath sounds present, no rales, no rhonchi , no wheezes Chest: Some discomfort to lower sternum area. Cardiovascular: RRR, pulses are symmetrical in both lower and upper extremities Abdomen: Soft, non-tender Bowel Sounds: Present Musculoskeletal: No CVA tenderness, no obvious deformity, moving all extremities in a grossly normal manner Neurological: A&Ox3, CN II-XII Intact, moving all extremities symmetrically Psychiatric: Normal affect and mood Triage Information Reviewed: Yes Vital Signs On Initial Exam: Initial Vitals Temp Pulse Resp BP Pulse Ox 97.2 F 95 25 154/94 94 09/05/18 08:54 09/05/18 08:54 09/05/18 08:54 09/05/18 08:54 09/05/18 08:54 Vital Signs Reviewed: Yes Diagnostics - Vital Signs Vital Signs Temp Pulse Resp BP Pulse Ox 09/05/18 10:33 66 21 124/75 93 09/05/18 10:03 69 25 137/76 91 09/05/18 10:00 65 22 91 09/05/18 09:34 65 20 118/73 91 09/05/18 09:04 76 158/90 95 09/05/18 09:03 72 94 09/05/18 08:54 97.2 F 95 25 154/94 94 - Laboratory Result Diagrams: 09/05/18 11:10 09/05/18 11:10 Lab Statement: Any lab studies that have been ordered have been reviewed, and results considered in the medical decision making process. - Radiology Chest XR Radiology Interpretation Completed By: Radiologist Summary of Radiographic Findings: IMPRESSION: Stigmata of obstructive lung disease. No acute pulmonary or cardiac process evident. Dr. Velásquez has reviewed this report. - EKG 10:05 Cardiac Rate: NL - at 67 bpm Summary of EKG Findings: Sinus arrhythmia at 67 bpm Course/Dx - Course Assessment/Plan: Pt is a 73 y/o male, with hx of emphysema, who presents to the ED with SOB and lower mid chest pain for the past couple of weeks, worsening since 2 days ago. Pt reports his SOB and chest pain are related and come about together. He describes his chest pain "like something is there" and "closes your air off and you can't breathe" which is worse with movement. Lab work was obtained. First troponin is negative. Chest XR shows stigmata of obstructive lung disease. No acute pulmonary or cardiac process evident. I discussed with Dr. Franco, celery stripper, who reports to repeat troponin and if negative send pt home. He will follow up with pt in his clinic. Repeat troponin is negative. Pt will be discharged home with follow up from his celery stripper, Dr. Franco in 1-2 weeks for possible repeat of echo. He was instructed to return to the ED for any worsening or new symptoms. - Diagnoses Provider Diagnoses: Dyspnea - Physician Notifications Discussed Care of Patient With: Gordon Franco - celery stripper Time Discussed With Above Provider: 13:47 Instructed by Provider To: Other - I discussed with Dr. Franco, celery stripper , who reports to repeat troponin and if negative send pt home. He will follow up with pt in his clinic. Discharge - Sign-Out/Discharge Documenting (check all that apply): Patient Departure - Discharge home - Discharge Plan Condition: Stable Disposition: HOME Patient Education Materials: Dyspnea (ED) Referrals: Eusebio Avina MD [Primary Care Provider] - Additional Instructions: Please follow up with your celery stripper, Dr. Franco. He would like to see you in his office in the next 1-2 weeks. He would also like to repeat your heart ultrasound. return if worse or any new symptoms. Take all medications as previously instructed. - Billing Disposition and Condition Condition: STABLE Disposition: Home - Attestation Statements Document Initiated by Benny: Yes Documenting Scribe: Ni Seaman Provider For Whom Benny is Documenting (Include Credential): Susu Velásquez MD Scribe Attestation: I, Ni Seaman, scribed for Susu Velásquez MD on 09/05/18 at 1811. Scribe Documentation Reviewed: Yes Provider Attestation: The documentation as recorded by the Ni meeks accurately reflects the service I personally performed and the decisions made by me, Susu Velásquez MD Status of Scribe Document: Viewed
[2018-09-05 11:22] LABS: ABS Basophils 0 10^3/ul (0-0.2); ABS Eosinophils 0.1 10^3/ul (0-0.6); ABS Monocytes 0.9 10^3/ul (0-0.8); ABS Neutrophils 6.1 10^3/ul (1.5-7.7); ABS Nucleated RBC 0 10^3/ul; Hematocrit 41 % (42-52); Hemoglobin 13.9 g/dl (14.0-18.0); Lymphocyte % 12.3 %; Mean Corpuscular HGB Conc 34 g/dl (31-36); Mean Corpuscular Hemoglobin 32 pg (27-31); Mean Corpuscular Volume 94 fL (80-94); Mean Platelet Volume 7.3 fL (7.4-10.4); Nucleated Red Blood Cells % 0; Platelet Count 269 10^3/ul (150-450); Red Blood Count 4.42 10^6/ul (4.00-5.40); Red Cell Distribution Width 13 % (10.5-15); White Blood Count 8.1 10^3/ul (3.5-10.8)
[2018-09-05 11:36] LABS: Activated Partial Thrombo Time 27.3 seconds (26.0-36.3); INR 0.88 (0.77-1.02)
[2018-09-05 11:41] LABS: Albumin 3.9 g/dL (3.2-5.2); Albumin/Globulin Ratio 1.1 (1-3); BUN/Creatinine Ratio 24.1 (8-20); Calcium 10.4 mg/dL (8.6-10.3); EGFR African American 74.7 (>60); EGFR Non-African American 61.7 (>60); Globulin 3.6 g/dL (2-4); Magnesium 2.1 mg/dL (1.9-2.7); Potassium 4.6 mmol/L (3.5-5.0); Total Bilirubin 0.4 mg/dL (0.2-1.0); Total Protein 7.5 g/dL (6.4-8.9)
[2018-09-05 14:57] VITALS: BP 174/92
== END 2018-09-05 14:57 | disposition home or self-care (01) ==
LOC: ED 08:52
DX: J43.9 Emphysema, unspecified (principal); Z87.891 Personal history of nicotine dependence; I25.10 Atherosclerotic heart disease of native coronary artery without angina pectoris; J44.9 Chronic obstructive pulmonary disease, unspecified; I10 Essential (primary) hypertension; E78.00 Pure hypercholesterolemia, unspecified; Z87.442 Personal history of urinary calculi; J45.909 Unspecified asthma, uncomplicated; M06.9 Rheumatoid arthritis, unspecified; I49.9 Cardiac arrhythmia, unspecified
CPT/HCPCS: 36415; 71045; 80053; 83735; 83880; 84443; 84484; 85025; 85610; 85730; 93005; 99283